=== PATIENT | female | born 1960 | race Caucasian/White ===

== ENCOUNTER 2017-11-27 13:51 | Inpatient (IN) ==
[2017-11-27] MEDS ORDERED: ONDANSETRON 4 MG/2 ML INJECTION IVP ONE (14:27)
[2017-11-27] MEDS ORDERED: NS 1,000 ML IV ONE (14:27)
[2017-11-27] MEDS ORDERED: KETOROLAC 30 MG/ML INJECTION IVP ONE (14:27)
--- NOTE | 2017-11-27 14:53 | Emergency Department Report ---
Nausea/Vomiting/Diarrhea HPI - General Chief complaint: Nausea/Vomiting/Diarrhea Stated complaint: vomitting, stomach pain Time Seen by Provider: 11/27/17 14:21 Source: patient, RN notes reviewed, old records reviewed Mode of arrival: ambulatory Limitations: no limitations - History of Present Illness HPI Narrative: 57yo woman presents to the ER for evaluation of N/V/D. Pt developed N/V/abd pain 4 days ago. Has had N/V/abd pain from 7pm to 5am for the last 3 nights. Pt states that nausea and vomiting are 'intractable', but vomiting is only once every hour or so. Denies sick contacts. Has metastatic BRCA. MD complaint: nausea, vomiting, diarrhea Onset (ago): day(s) (3-4) Description of Vomiting: watery Location of pain: diffuse Severity scale (1-10): 5 Quality: cramping Consistency: constant, intermittent Exacerbating factors: movement Associated symptoms: denies other symptoms - Related Data Home Medications Medication Instructions Recorded Confirmed Carisoprodol [Soma] 350 mg PO Q8H PRN #0 01/17/16 11/27/17 Inulin/Chromium Picolinate [Fiber 1 tab PO BID #0 01/17/16 11/27/17 Gummies] ALPRAZolam [Xanax] 1 mg PO TID PRN 11/27/17 11/27/17 Calcium Carbonate/Vitamin D3 1 each PO DAILY 11/27/17 11/27/17 [Calcium 500-Vit D3 200 Tablet] Cyanocobalamin (B-12) [Vit. B-12] 500 mcg PO DAILY 11/27/17 11/27/17 Docusate Sodium [Colace] 100 mg PO BID 11/27/17 11/27/17 FLUoxetine [Prozac] 60 mg PO DAILY 11/27/17 11/27/17 FentaNYL PATCH [Duragesic Patch] 1 patch TD Q72H 11/27/17 11/27/17 Multivitamin [One Daily] 1 each PO DAILY 11/27/17 11/27/17 Peg 3350 238 G Bottle [Miralax] 1 dose PO DAILY PRN 11/27/17 11/27/17 Potassium Chloride 20 meq PO DAILY 11/27/17 11/27/17 Rivaroxaban [Xarelto] 20 mg PO DAILY 11/27/17 11/27/17 Previous Rx's Medication Instructions Recorded Oxycodone HCl [Roxicodone] 15 - 30 mg PO Q4H PRN #30 tab 12/02/17 Allergies Allergy/AdvReac Type Severity Reaction Status Date / Time No Known Allergies Allergy Verified 11/27/17 15:12 Review of Systems All systems: reviewed and negative except as stated Gastrointestinal: Reports: as per HPI, abdominal pain, nausea, vomiting. Denies : diarrhea, constipation, hematemesis, melena, hematochezia PFSH Patient Stated Medical History Dental Problems Yes: DENTURES Other HEENT Yes: WEARS GLASSES Obstructive Bowel Yes Clotting Problems Yes Medical History Updates: Anxiety. Constipation. A-fib. Breast CA. Liver mets. Depression. Chronic pain. OA Physical Exam - Limitations Limitations: no limitations - General General appearance: alert, in no apparent distress, cachectic - Normal Exams: Head:: Normocephalic without trauma Eyes:: Pupils are PERRLA w/ EOMI, No scleral icterus, irritation, or foreign bodies noted ENMT:: No facial trauma, nasal exudates, pharyngeal erythema, or exudates are noted Neck:: Full range of motion, without adenopathy Lymphatic:: No lymphadenopathy Musculoskeletal:: No tenderness, or deformity noted, good range of motion Integumentary:: No rashes, hives, or bruising noted Neurological:: Patient is alert, and oriented Psychiatric:: Patient exhibits, appropriate attention - Chest Chest inspection: Present: normal inspection, symmetric chest wall rise. Absent : tenderness, rash - Respiratory Respiratory exam: Present: normal lung sounds bilaterally. Absent: respiratory distress, wheezes, prolonged expiratory phase, crackles - Cardiovascular Cardiovascular exam: Present: regular rate, normal rhythm, normal heart sounds, +S1, +S2. Absent: systolic murmur, diastolic murmur, +S3, +S4 - Abdominal Exam Abdominal exam: Present: soft. Absent: distention, tenderness, guarding, rebound, rigidity Course - Consultations Consultation #1: Dr. Ribeiro: No indications for emergent intervention. Can consult after pt is admitted and treat, if required. Time: 15:59 Consultation #2: Hospitalist: Will admit for observation. Time: 16:41 Vital Signs Temperature 98.9 F 11/27/17 14:05 Pulse Rate 96 11/27/17 14:05 Respiratory Rate 24 11/27/17 14:05 Blood Pressure 112/53 11/27/17 14:05 Pulse Oximetry 92 11/27/17 14:05 Temperature 98.5 F 12/02/17 17:54 Pulse Rate 98 12/02/17 17:54 Respiratory Rate 18 12/02/17 17:54 Blood Pressure 140/67 H 12/02/17 17:54 Pulse Oximetry 92 12/02/17 17:54 Nausea/Vomiting/Diarrhea - MDM Narrative Medical decision making narrative: On further review, pts sx started after learning that her liver met was growing. KUB shows an intraluminal earring and high-grade SBO. Will contact Gen Surg to discuss admission. Will likely need to be admitted to medicine due to comorbidities. - Differential Diagnosis Likely: food poisoning, gastroenteritis, drug-induced nausea and vomiting, dehydration (Anxiety) - Medical Records Attestation: I reviewed the patient's medical records. - Lab Data Attestation: I reviewed the patient's lab results. Result diagrams: 12/02/17 04:11 12/02/17 04:11 Lab Results 11/27/17 11/27/17 Range/Units 14:51 14:51 WBC 7.7 (4.5-11.0) T/MM3 RBC 3.73 L (4.00-5.20) M/MM3 Hgb 11.6 L (12-16) GM/DL Hct 36.1 (36-46) % MCV 96.8 (80-100) UM3 MCH 31.1 (26-34) UUG MCHC 32.1 (31-37) GM/DL RDW Std Deviation 51.4 H (36.9-50.2) FL Plt Count 302 (130-400) T/MM3 MPV 9.5 (9.4-12.4) UM3 Immature Gran % (Auto) 0.3 (0.0-0.5) % Neut % (Auto) 76.8 H (33-66) % Lymph % (Auto) 14.9 L (23-45) % Lynn % (Auto) 7.3 (0-9.0) % Eos % (Auto) 0.4 (0-4) % Baso % (Auto) 0.3 (0-2) % Neut # (Auto) 5.9 (1.8-7.7) T/MM3 Lymph # (Auto) 1.2 (1-4.8) T/MM3 Lynn # (Auto) 0.6 (0-0.8) T/MM3 Eos # (Auto) 0.0 (0-0.5) T/MM3 Baso # (Auto) 0.0 (0-0.2) T/MM3 Abs Immat Gran (auto) 0.02 (0.00-0.03) T/MM3 Turbidity < 20 (0-20) Sodium 141 (134-144) MEQ/L Potassium 3.7 (3.6-5) MEQ/L Chloride 96 L (98-107) MEQ/L Carbon Dioxide 35 H (22-30) MEQ/L Anion Gap 10 (5-15) MEQ/L BUN 23.0 H (7-17) MG/DL Creatinine 0.9 (0.7-1.2) MG/DL GFR Calculation 65 BUN/Creatinine Ratio 26 (6-26) RATIO Glucose 121 H (65-110) MG/DL Calculated Osmolality 276 (261-280) MOSM/KG Calcium 9.7 (8.4-10.2) MG/DL Total Bilirubin 0.40 (0.20-1.30) MG/DL Icterus Index < 2 (0-7) AST 23 (14-36) U/L ALT 34 (9-52) U/L Alkaline Phosphatase 135 H (38-126) U/L Troponin I < 0.012 (0-0.12) ng/ml Total Protein 8.7 H (6.3-8.2) G/DL Albumin 4.4 (3.5-5.0) G/DL Globulin 4.3 H (2.4-3.6) G/DL Albumin/Globulin Ratio 1.0 L (1.1-2.2) RATIO Lipase 46 (23-300) U/L Specimen Hemolysis < 15 (0-25) - Radiology Data Attestation: I reviewed the patient's radiology results. KUB: IMPRESSION: 1. No acute cardiopulmonary abnormality. 2. Evidence of a high-grade small bowel obstruction that may or may not be related to an ingested foreign body in the right lower quadrant which appears to be an earring. Disposition Clinical Impression: SBO (small bowel obstruction) Foreign body in colon Qualifiers: Encounter type: initial encounter Qualified Code(s): T18.4XXA - Foreign body in colon, initial encounter [place] [facility] [facility] [place] Stable Time of Disposition: 16:13 - Seen By: physician
--- OUTSIDE RECORDS SUMMARY | 2017-11-27 15:14 | External Medical Summary | Continuity of Care Document ---
:1960 Author Organization [facility] Support Name Relationship Address Phone PAGE, TERE Calderón MD Unavailable [address] [facility] Unavailable [address] [place] [address] JESSICA VALENTIN Unavailable [place] [address] Insurance Providers Payer Name Policy Number Subscriber Name Relationship [facility] [id number] Martha Gates A 18 Self / Same As Patient Advance Directives Directive Response Recorded Date/Time Advanced Directives Unknown 04/30/16 10:46am Problems Active Problems Medical Problem Onset Date Status Abdominal pain Unknown Acute Altered mental status Unknown Acute Breast cancer Unknown Acute Constipation Unknown Acute SBO (small bowel obstruction) Unknown Acute Small bowel obstruction Unknown Acute Medications Current Home Medications Medication Dose Units Route Directions Days/Qty Instructions Start Date Oxycodone/Acetamino 1-2 Tab ORAL Every 4HRS as 09/27/15 phen 1 Tab needed for Pain Cyanocobalamin 500 Mcg ORAL Daily 09/27/15 (Vitamin B-12) 500 Mcg Carisoprodol (Soma) 350 Mg ORAL Three Times A Day 09/27/15 350 Mg as needed for Pain Fluoxetine Hcl 60 Mg ORAL Daily 09/27/15 (Prozac) 20 Mg Calcium Carbonate 600 Mg ORAL Daily 09/28/15 600 Mg Inulin/Chromium 1 Each ORAL Daily 09/28/15 Picolinate 1 Each Alprazolam 1 Mg 1 Mg ORAL Twice A Day as 12/08/15 needed for Anxiety Ondansetron Hcl 4 4 Mg ORAL Every 6 Hours as 15 12/11/15 Mg needed for Nausea Magnesium Hydroxide 30 Ml ORAL Every 4HRS as 1 12/11/15 400 Mg/5 Ml needed for Constipation Polyethylene Glycol 17 Gm ORAL Daily 30 12/11/15 3350 17 Gm Docusate Sodium 100 100 Mg ORAL Twice A Day 60 12/11/15 Mg Past Home Medications Medication Directions Ordered Status Phenazopyridine Hcl 100 Mg Tablet, 100 Mg Three Times A Day 09/27/15 Discontinued Oral Carisoprodol 250 Mg Tablet, 250 Mg Oral Four Times Daily 09/27/15 Discontinued Alprazolam (Xanax) 0.25 Mg Tablet, 0.25 Mg As Needed 09/27/15 Discontinued Oral Ondansetron Hcl 8 Mg Tablet, 8 Mg Oral Twice A Day 09/27/15 Discontinued Warfarin (Coumadin) 5 Mg Tablet, 5 Mg Oral Daily 09/27/15 Discontinued Levofloxacin 500 Mg Tablet, 500 Mg Oral Daily 12/07/15 Discontinued Social History Query Response Start Date Stop Date Smoking Status Former smoker Hospital Discharge Instructions No hospital discharge instructions. Plan of Care Prescriptions See Medication Section Functional Status No functional status results. Allergies, Adverse Reactions, Alerts Allergen Type Severity Reaction Status Last Updated Quinolones Allergy Unknown Active 09/27/15 Ciprofloxacin Allergy Unknown Active 01/27/15 Immunizations No immunization records. Vital Signs No known vital signs results. Results Laboratory Results Test Name Result Units Flags Reference Collection Result Comments Date/Time Date/Time White Blood Count 5.09 10^3uL 4.0-11.0 03/16/2017 03/16/2017 3:03pm 3:23pm Red Blood Count 3.56 10^6uL L 4.00-5.00 03/16/2017 03/16/2017 3:03pm 3:23pm Hemoglobin 11.2 g/dL L 12.0-15.5 03/16/2017 03/16/2017 3:03pm 3:23pm Hematocrit 34.70 % L 35.00-45.00 03/16/2017 03/16/2017 3:03pm 3:23pm Mean Corpuscular 98 FL 80-100 03/16/2017 03/16/2017 Volume 3:03pm 3:23pm Mean Corpuscular 31.5 PG 26.0-34.0 03/16/2017 03/16/2017 Hemoglobin 3:03pm 3:23pm Mean Corpuscular 32.3 g/dL 31.0-37.0 03/16/2017 03/16/2017 Hemoglobin Concent 3:03pm 3:23pm Red Cell 13.5 % 11.8-15.6 03/16/2017 03/16/2017 Distribution Width 3:03pm 3:23pm Platelet Count 304 10^3uL 150-450 03/16/2017 03/16/2017 3:03pm 3:23pm Mean Platelet 9.0 FL 6.0-9.5 03/16/2017 03/16/2017 Volume 3:03pm 3:23pm Differential Total 100 03/16/2017 03/16/2017 Cells Counted 3:03pm 4:04pm Segmented 48 % L 51-67 03/16/2017 03/16/2017 Neutrophils % 3:03pm 4:04pm Band Neutrophils % 0 % 0-6 03/16/2017 03/16/2017 3:03pm 4:04pm Lymphocytes % 42 % 20-46 03/16/2017 03/16/2017 (Manual) 3:03pm 4:04pm Monocytes % 7 % 3-11 03/16/2017 03/16/2017 (Manual) 3:03pm 4:04pm Eosinophils % 2 % 0-4 03/16/2017 03/16/2017 (Manual) 3:03pm 4:04pm Basophils % 1 % 0-2 03/16/2017 03/16/2017 (Manual) 3:03pm 4:04pm Neutrophils # 2.4 # 03/16/2017 03/16/2017 3:03pm 4:04pm Absolute Band 0.0 # 03/16/2017 03/16/2017 Neutrophils 3:03pm 4:04pm Lymphocytes # 2.1 # 03/16/2017 03/16/2017 3:03pm 4:04pm Monocytes # 0.4 # 03/16/2017 03/16/2017 3:03pm 4:04pm Eosinophils # 0.1 # 03/16/2017 03/16/2017 3:03pm 4:04pm Basophils # 0.1 # 03/16/2017 03/16/2017 (Manual) 3:03pm 4:04pm Blood Morphology NORMAL NORMAL 03/16/2017 03/16/2017 Comment 3:03pm 4:04pm Volume Urine 12 mL 04/08/2017 04/08/2017 Centrifuged 4:20pm 4:57pm Urine Collection RANDOM 04/08/2017 04/08/2017 Type VOIDED 4:20pm 4:57pm Urine Color Dark 04/08/2017 04/08/2017 Yellow 4:20pm 4:56pm Urine Clarity Slightly 04/08/2017 04/08/2017 Cloudy 4:20pm 4:56pm Urine pH 6.0 5.0 - 8.0 04/08/2017 04/08/2017 4:20pm 4:56pm Urine Specific >=1.030 1.005-1.030 04/08/2017 04/08/2017 [place] 4:20pm 4:56pm Urine Protein TRACE H 04/08/2017 04/08/2017 4:20pm 4:56pm Urine Glucose (UA) Negative Negative 04/08/2017 04/08/2017 4:20pm 4:56pm Urine Blood 2+ H Negative 04/08/2017 04/08/2017 4:20pm 4:56pm Urine Ketones Trace H Negative 04/08/2017 04/08/2017 4:20pm 4:56pm Urine Nitrite Negative Negative 04/08/2017 04/08/2017 4:20pm 4:56pm Urine Bilirubin Negative Negative 04/08/2017 04/08/2017 4:20pm 4:56pm Urine Urobilinogen 0.2 mg/dL 0.2-1.0 04/08/2017 04/08/2017 4:20pm 4:56pm Urine Leukocyte Negative Negative 04/08/2017 04/08/2017 Esterase 4:20pm 4:56pm Urine Microscopic 2-5 /HPF 04/08/2017 04/08/2017 RBC 4:20pm 4:57pm Urine Microscopic 10-20 /HPF H 04/08/2017 04/08/2017 WBC 4:20pm 4:57pm Urine Bacteria None Seen /HPF Negative 04/08/2017 04/08/2017 4:20pm 4:57pm Urine Squamous 2-5 /LPF 04/08/2017 04/08/2017 Epithelial Cells 4:20pm 4:57pm Urine Mucus 2+ H 04/08/2017 04/08/2017 4:20pm 4:57pm Sodium Level 141 mmol/L 135-150 03/16/2017 03/16/2017 3:03pm 3:26pm Potassium Level 4.2 mmol/L 3.5-5.1 03/16/2017 03/16/2017 3:03pm 3:26pm Chloride Level 104 mmol/L 98-108 03/16/2017 03/16/2017 3:03pm 3:26pm Carbon Dioxide 30 mmol/L H 22-29 03/16/2017 03/16/2017 Level 3:03pm 3:26pm Anion Gap 12.1 MEQ/L 3-15 03/16/2017 03/16/2017 3:03pm 3:26pm Blood Urea Nitrogen 19 mg/dL H 7-18 03/16/2017 03/16/2017 3:03pm 3:26pm Creatinine 0.65 mg/dL 0.6-1.2 03/16/2017 03/16/2017 3:03pm 3:26pm BUN/Creatinine 29 H 10-20 03/16/2017 03/16/2017 Ratio 3:03pm 3:26pm Estimat Glomerular 114.1 03/16/2017 03/16/2017 Filtration Rate 3:03pm 3:26pm Estimated GFR 94.3 03/16/2017 03/16/2017 (Non- 3:03pm 3:26pm [place] Glucose Level 88 mg/dL 70-110 03/16/2017 03/16/2017 3:03pm 3:26pm Calculated 275 mosm/L L 280-300 03/16/2017 03/16/2017 Osmolality 3:03pm 3:26pm Calcium Level 9.0 mg/dL 8.8-10.8 03/16/2017 03/16/2017 3:03pm 3:26pm Calcium/Ionized 3.8 mg/dL 3.8-4.6 03/16/2017 03/16/2017 Calcium Ratio 3:03pm 3:26pm Phosphorus Level 4.3 mg/dL 2.4-4.9 03/16/2017 03/16/2017 3:03pm 3:26pm Magnesium Level 1.8 mg/dL 1.6-2.3 03/16/2017 03/16/2017 3:03pm 3:26pm Total Bilirubin 0.3 mg/dL 0.1-1.0 03/16/2017 03/16/2017 3:03pm 3:26pm Alkaline 127 U/L H 38-126 03/16/2017 03/16/2017 Phosphatase 3:03pm 3:26pm Aspartate Amino 31 U/L 15-37 03/16/2017 03/16/2017 Transf (AST/SGOT) 3:03pm 3:26pm Alanine 51 U/L 30-65 03/16/2017 03/16/2017 Aminotransferase 3:03pm 3:26pm (ALT/SGPT) Lactate 469 U/L 313-618 03/16/2017 03/16/2017 Dehydrogenase 3:03pm 3:26pm Total Protein 7.6 g/dL 6.4-8.5 03/16/2017 03/16/2017 3:03pm 3:26pm Albumin 3.9 g/dL 3.4-5.0 03/16/2017 03/16/2017 3:03pm 3:26pm Albumin/Globulin 1.054 L 1.1-1.8 03/16/2017 03/16/2017 Ratio 3:03pm 3:26pm Procedures No known history of procedures. Encounters Encounter Location Arrival/Admit Date Discharge/Depart Date Attending Provider Discharged Maria De Jesus 03/16/17 3:00pm 04/22/17 7:16pm [facility]
--- OUTSIDE RECORDS SUMMARY | 2017-11-27 15:14 | External Medical Summary ---
:1960 Author Organization [employer] Care Team Providers Name Role Phone Darleen Hooper Provider Role Unavailable Allergies, Adverse Reactions, Alerts Substance Reaction Event Type sulfa drugs unknown Non Drug Allergy Problems Problem Type Condition Code Onset Dates Condition Status Assessment Acute cystitis with hematuria N30.01 Active Assessment Dysuria R30.0 Active Medications Medication Code Code Instructions Start End Date Status Dosage System Date Levofloxacin NDC 19205-53 750 MG Orally Aug 28, Sep 02, 1 tablet 93-53 Once a day 2015 2015 Oxycodone-Acetami NDC 40116-88 10-325 MG Orally 1 tablet nophen 06-01 every 6 hrs as needed Potassium NDC 83887-95 not Gluconate 761 defined Carisoprodol NDC 40430-89 350 MG Orally 1 tablet 76-01 Four times a day as needed Multivitamins NDC 19876-19 Orally not 041 defined Docusate Sodium NDC 61813-03 100 MG Orally 1 capsule 63-00 BID as needed MiraLax NDC 27738-63 Orally not 34-02 defined Fluoxetine NDC 0 60 mg daily not defined Procedures Procedure Coding System Code Date URINE CULTURE CPT-4 31307 Aug 28, 2016 OFFICE VISIT, EST-LOW COMPLEXITY (15 MIN.) CPT-4 42735 Aug 28, 2016 Vital Signs Date/Time: Aug 28, 2016 Temperature 97.9 F Height 68.5 in Weight 141.8 lbs Blood Pressure Diastolic 64 mm Hg Blood Pressure Systolic 102 mm Hg Cardiac Monitoring Heart Rate 90 /min BMI 21.24 Index Oximetry 95 % Respiratory Rate 16 /min Results No Known Results Summary Purpose eClinicalWorks Submission
--- OUTSIDE RECORDS SUMMARY | 2017-11-27 15:14 | External Medical Summary | Continuity of Care Document ---
:1960 Author Organization [facility] Support Name Relationship Address Phone Guerita Fairbanks Unavailable [address] Unavailable [address] [place] [address] LENNY GONZALEZ MD Unavailable [address] [address] JESSICA VALENTIN [place] [address] Insurance Providers Payer Name Policy Number Subscriber Name Relationship Myriam Chiara Hamiltonr [id number] Martha Mg 18 Self / Same As Patient Advance Directives Directive Response Recorded Date/Time Advanced Directives No 12/06/15 9:45pm Chief Complaint and Reason for Visit Chief Complaint Pain Reason for Visit [id number] Problems Active Problems Medical Problem Onset Date Status Breast cancer Unknown Acute SBO (small bowel obstruction) Unknown Acute Medications Current Home Medications Medication Dose Units Route Directions Days/Qty Instructions Start Date Oxycodone 1 Tab ORAL As Needed as 09/27/15 Hcl/Acetaminophen 1 needed for Pain Tab Cyanocobalamin 500 Mcg ORAL Daily 09/27/15 (Vitamin B-12) 500 Mcg Alprazolam (Xanax) 0.25 Mg ORAL As Needed 09/27/15 0.25 Mg Carisoprodol (Soma) 350 Mg ORAL Three Times A 09/27/15 350 Mg Day Fluoxetine Hcl 20 Mg ORAL Daily 09/27/15 (Prozac) 20 Mg Warfarin (Coumadin) 5 Mg ORAL Daily 09/27/15 5 Mg Calcium Carbonate 600 Mg ORAL Daily 09/28/15 600 Mg Inulin/Chromium 1 Each ORAL Daily 09/28/15 Picolinate 1 Each Past Home Medications Medication Directions Ordered Status Phenazopyridine Hcl 100 Mg Tablet, 100 Mg Three Times A Day 09/27/15 Discontinued Oral Carisoprodol 250 Mg Tablet, 250 Mg Oral Four Times Daily 09/27/15 Discontinued Ondansetron Hcl 8 Mg Tablet, 8 Mg Oral Twice A Day 09/27/15 Discontinued Social History Query Response Start Date Stop Date Smoking Status Unknown, if ever smoked Hospital Discharge Instructions No hospital discharge instructions. Plan of Care Discharge Date 12/07/15 1:53am Disposition 01 HOME OR SELF-CARE Condition at Discharge Stable Instructions/Education Provided Bowel Obstruction (GEN) Acute Abdominal Pain (ED) Prescriptions See Medication Section Additional Instructions/Education Clear liquid diet only for the next 24 hours. See your doctor/go to walk-in clinic, or return to ED for re-evaluation tomorrow. ED ORION if you change your mind about being admitted. Some of your test results may not be complete prior to your leaving the Emergency Department. The Emergency Department is not authorized to give test results over the phone. Please contact the doctor's office listed in this packet of information for your final results. Follow up with your primary care physician or return to the Emergency Department for worsening or worrisome symptoms. * Emergency Department phone number: [phone], x [phone]* MEDICAL RECORD If you need copies of your X-rays, call [phone]. If you need copies of your medical record, including lab results, a signed authorization for release of records will be required. A telephone call for release of Health Information is not allowed. BILLING Billing can sometimes be confusing and frustrating. To help avoid confusion in the future, please take a moment to acquaint yourself with the billing parties for services. SERVICE BILLING [facility] Physician Services [facility] X-rays [place] [facility] Patients will receive bills for services from the appropriate provider. If you have any questions about your [facility] bill, our staff will be happy to assist you. Please call [phone], and ask for the billing department. THANK YOU for choosing [facility] as your emergency care provider! Care Plan and Goals ~~Discharge Care Plan~~ Problem: Abdominal pain/ BOWEL OBSTRUCTION Goal: Decreased level of pain. Return to usual activities. Instructions: Take medication(s) as directed; follow up with primary care physician as directed; follow patient home care instructions. Functional Status No functional status results. Allergies, Adverse Reactions, Alerts Allergen Type Severity Reaction Status Last Updated Quinolones Allergy Unknown Active 09/27/15 Ciprofloxacin Allergy Unknown Active 01/27/15 Immunizations No immunization records. Vital Signs Acute Vital Signs Vital Response Date/Time Temperature (Fahrenheit) 98.7 12/07/2015 1:51am Pulse 84 bpm 12/07/2015 1:51am Respirations 18 12/07/2015 1:51am Height 5 ft 6 in Weight 139 lb Body Mass Index 22.0 kg/m^2 Results Pending Laboratory Results Test Name Collection Date/Time Procedures Procedure Status Date Provider(s) CHEST X-RAY 2VW FRONTAL&LATL Completed 11/21/15 TTE W/DOPPLER COMPLETE Completed 11/21/15 Encounters Encounter Location Arrival/Admit Date Discharge/Depart Date Attending Provider Departed [place] 12/06/15 9:18pm 12/07/15 1:53am [facility] LENNY Aggarwal MD Registered [place] 11/21/15 9:19am [facility] Recent Diagnosis
--- OUTSIDE RECORDS SUMMARY | 2017-11-27 15:14 | External Medical Summary | Referral Summary ---
:1960 Author Organization [facility] Address [address] [place] [address] [place] [address] Care Team Providers Name Role Phone Darleen Hooper Primary Care Physician Encounter VC Date(s): 02/06/16 - 02/06/16 [facility], [address] [place] [id number] Discharge Diagnosis: Post-operative state Discharge Disposition: 01-Home or Self Care Attending Physician: Angélica Buck APRN Admitting Physician: Angélica Buck APRN Referring Physician: Darleen Hooper LANCE CREWMEMBER/MLRS SERGEANT Vital Signs Most recent to oldest [Reference Range]: 1 Temperature Tympanic [36.6-38.1 degC] 36.9 degC (02/06/16 10:33 AM) Problem List No data available for this section Allergies, Adverse Reactions, Alerts No Known Medication Allergies Medications Citracal Calcium Gummies tabs, Chewed, BID, 0 Refill(s) Start Date: 08/17/14 Status: OrderedColace 100 mg oral capsule 100 mg 1 caps, Oral, BID, as needed for constipation, # 20 caps, 0 Refill(s) Start Date: 02/06/16 Status: OrderedHYDROcodone-ibuprofen 7.5 mg-200 mg oral tablet 1 tabs, Oral, q4hr, as needed for pain, 0 Refill(s) Start Date: 08/17/14 Status: OrderedMiraLax oral powder for reconstitution 17 g, Oral, Daily, dissolve in water before taking, # 255 g, 0 Refill(s) Start Date: 02/06/16 Status: Orderedmultivitamin Daily, 0 Refill(s) Start Date: 08/17/14 Status: OrderedoxyCODONE-acetaminophen 10 mg-325 mg oral tablet 1 tabs, Oral, q4hr, as needed for pain, # 10 tabs, 0 Refill(s) Start Date: 02/06/16 Status: Orderedpotassium citrate Oral, 0 Refill(s) Start Date: 08/21/14 Status: OrderedPROzac Oral, Daily, 0 Refill(s) Start Date: 08/17/14 Status: OrderedVitamin B12 0 Refill(s) Start Date: 08/17/14 Status: OrderedXanax Oral, TID, 0 Refill(s) Start Date: 08/17/14 Status: Ordered Results No data available for this section Immunizations No data available for this section Procedures Procedure Date Related Diagnosis Body Site Exploratory laparotomy1 01/18/16 Mastectomy of right breast 07/21/14 BLADDER TUCK TICO BSO - Total abdominal hysterectomy and bilateral salpingo-oophorectomy Tonsil and adenoid disease, chronic 1Lysis of adhesions Social History Social History Type Response Smoking Status Former smoker Assessment and Plan Extracted from: Title: Office Visit Note Author: Angélica Buck 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 This may also help with allstool function to some extent. Continue with antibiotic for the urinary tract infection. Continue to use common sense. If an activity is causing pain, that is a sign that you need to "back off" and wait a little longer before lifting something that heavy or doing that activity. Do not hes itate to contact us with any surgical concerns. Continue with your general medical care through your primary care physician. Ordered: Postoperative Est [id number]
--- OUTSIDE RECORDS SUMMARY | 2017-11-27 15:14 | External Medical Summary | Continuity of Care Document ---
:[address] [facility] Care Team Providers Name Role Phone Guerita Fairbanks Unavailable Unavailable Insurance Providers Payer Name Policy Number Subscriber Name Relationship [facility] [employer] [id number] Martha Gates 19 Self / Same As Patient Advance Directives Directive Response Recorded Date/Time Advanced Directives No 09/28/15 8:45am Problems Active Problems Medical Problem Onset Date Status Breast cancer Unknown Acute Medications Current Home Medications Medication [...] Twice A Day 09/27/15 Discontinued Social History Social History Problem Response Recorded Date/Time Onset Date Status Occupation or Former Occupation Disabled 09/28/2015 9:07am Query Response Start Date Stop Date Smoking Status Never smoker Hospital Discharge Instructions No hospital discharge instructions. Plan of Care Discharge Date 09/28/15 2:18pm Prescriptions See Medication Section Functional Status No functional status results. Allergies, Adverse Reactions, Alerts Allergen Type Severity Reaction Status Last Updated Quinolones Allergy Unknown Active 09/27/15 Ciprofloxacin Allergy Unknown Active 01/27/15 Immunizations No immunization records. Vital Signs Acute Vital Signs Vital Response Date/Time Temperature (Fahrenheit) 97.7 09/28/2015 1:48pm Pulse 90 bpm 09/28/2015 1:48pm Respirations 20 09/28/2015 1:48pm Height 5 ft 6 in Weight 140 lb Body Mass Index 22.6 kg/m^2 Results Laboratory Results Test Name Result Units Flags Reference Collection Result Comments Date/Time Date/Time Prothrombin Time 13.0 SEC 11.9-14.2 09/28/2015 09/28/2015 9:02am 9:18am Prothromb Time 1.0 0.8-1.4 09/28/2015 09/28/2015 International 9:02am 9:18am Ratio Procedures No known history of procedures. Encounters Encounter Location Arrival/Admit Date Discharge/Depart Date Attending Provider Departed Maria De Jesus 09/28/15 8:28am 09/28/15 2:18pm [facility] JASVIR Lu MD Care Recent Diagnosis Breast cancer
--- OUTSIDE RECORDS SUMMARY | 2017-11-27 15:14 | External Medical Summary ---
:1960 Author Organization [facility]. Summary purpose CCDA Sent to [facility] Chief Complaint and Reason for Visit Admit Diagnosis 1 PRECORDIAL PAIN Problem list No authorized problems tracked for continuity of care are available for this visit. Encounters No authorized problems tracked for encounter diagnoses are available for this visit. Medications Home Medications Medication Directions Started Status Source [place] 5 mg-325 mg tablet 1-2 tablet oral As Needed Discont Every 6 Hours Prozac 20 mg capsule 3 tablet oral -Daily Current cyclobenzaprine 10 mg tablet 1 tablet oral As Needed Current Every 8 Hours Calcium 500 + D 500 mg(1,250 2 unknown oral 2 times per Current mg)-400 unit chewable tablet day ALPRAZolam 2 mg tablet 1 tablet oral As Needed Current Every 8 Hours vitamin [id number] acid oral 1 tablet oral -Daily Current 2000 mg daily potassium chloride ER 10 mEq 1 tablet oral -Daily Current tablet,extended release Allergies, adverse reactions, alerts Allergen Category Ingredient Status Reaction Severity Onset No Known Drug No Known Drug No Known Drug Active Allergy Allergy Allergy No Known Food No Known Food No Known Food Active Allergy Allergy Allergy Immunizations No immunizations recorded for this patient visit Relevant diagnostic tests and/or laboratory data RESULTS CBC [id number]:30:00 Result Normal Range Units WBC L 4.69 4.8-10.8 x103/mm3 Neutrophil % H 78.7 50-70 % Lymph % L 16.8 20-50 % Leon % 4.1 1.0-9.0 % Eosinophil % 0.2 0-4 % Basophil % 0.2 0-2 % Neutrophil # 3.69 3.0-7.0 x103/mm3 Lymph # L 0.79 1.0-4.0 x103/mm3 Leon # 0.19 0.0-0.8 x103/mm3 Eosinophil # 0.01 0-0.5 x103/mm3 Basophil # 0.01 0-0.2 x103/mm3 RBC L 3.69 4.20-5.40 x103/mm3 HGB 12.1 12.0-16.0 g/dl HCT L 36.5 37.0-47.0 % MCV 98.9 81-99 FL MCH H 32.8 27.0-31.0 pg MCHC 33.2 32.0-36.0 g/dl RDW 13.5 12-15 % Platelet 255 150-400 x103/mm3 MPV 9.0 6.0-10.0 FL Chemistry Group [id number]:00 Result Normal Range Units Sodium 138 134-145 mmol/L Potassium L 3.3 3.6-5.0 mmol/L Chloride 101 98-107 mmol/L CO2 26 22-30 mmol/L Glucose H 135 75-110 mg/dl BUN 13 9-20 mg/dl Creatinine L .6 0.8-1.7 mg/dl Total Protein 7.2 6.3-8.2 g/dl Albumin 4.0 3.5-5.0 g/dl Calcium 9.1 8.4-10.2 mg/dl Alk Phos 89 38-126 U/L AST 28 14-36 U/L ALT 21 11-66 U/L T Bili .2 0.2-1.3 mg/dl A/G Ratio 1.2 Ratio Coagulation Group [id number]:00 Result Normal Range Units Protime H 15.6 9.9-11.9 Sec INR 1.4 APTT 31.4 21.9-31.9 Sec Special Chemistry Group [id number]:00 Result Normal Range Units Troponin I < 0.06 ng/ml NEGATIVE - 0.06-0.30 ng/ml INCONCLUSIVE - 0.31-0.64 ng/ml; Suggest Repeating in 2-4 hours POSITIVE - >0.64 ng/ml; Probable AMI History of procedures Procedure Code Code Type Description Date Performed Performing Physician 16789 CPT-4 EMERGENCY DEPT VISIT 02-12-2015 [facility] [place] 31561 CPT-4 COMPLETE CBC AUTOMATED 02-12-2015 [place] [place] 05522 CPT-4 PROTHROMBIN TIME 02-12-2015 [place] [place] 85181 CPT-4 THROMBOPLASTIN TIME 02-12-2015 [facility] PARTIAL SABIHA 62758 CPT-4 COMPREHEN METABOLIC 02-12-2015 [facility] [address] CPT-4 ASSAY OF TROPONIN QUANT 02-12-2015 [facility] [address]695 CPT-4 CHEST X-RAY 2VW 02-12-2015 G[facility] FRONTAL&LATL [facility] [address] CPT-4 ELECTROCARDIOGRAM 02-12-2015 [facility]TO TRACING [facility] [address] CPT-4 ROUTINE VENIPUNCTURE 02-12-2015 [facility] Functional status Cognitive Status Finding Observation Time Level of Consciousne Alert [id number] Oriented to Person Yes [id number]:[address] Yes [id number]:50 Oriented to Time Yes 29-50-437545:50 Vital signs Type Value Date Respirations 20 49-82-310494:15 Pulse 84 14-35-735438:15 O2 Saturation 96% 27-77-730087:15 Systolic Blood Press 133mm/HG 59-03-555015:15 Diastolic Blood Pres 42mm/HG 38-21-914827:15 Height 70in 78-13-608105:00 Weight 180LB 56-38-751475:00 Social history Type Value Smoking Status NEVER SMOKER Treatment Plan No treatment plan text is available for this visit. Hospital discharge instructions No discharge instruction text is available for this visit.
--- OUTSIDE RECORDS SUMMARY | 2017-11-27 15:14 | External Medical Summary | Summary of Care ---
:1960 Author Name Carla Owen Address [address] [place] [address] Care Team Providers Name Role Phone Carla Owen Unavailable Unavailable Darleen Hooper Primary Care Provider Unavailable Unavailable Unavailable Unavailable Functional Status Functional Status Health Issues Name Dates Details Functional status health issues are not documented Status: Cognitive Status Health Issues Name Dates Details Cognitive status health issues are not documented Status: Problems Name Dates Details Injury of leg, right (959.7, S89.91XA) Status: Active Skin infection (686.9, L08.9) Status: Active Medications Name Dates Details FLUoxetine HCl - 20 MG Oral Capsule TAKE 3 CAPSULES AT BEDTIME. Refills: 0 Started 17-Apr-2016 ActiveALPRAZolam 1 MG Oral Tablet TAKE 1 TABLET Daily PRN Refills: 0 Started 17-Apr-2016 ActivePercocet 10-325 MG Oral Tablet TAKE 2 TABLET Every 4 hours Refills: 0 Started 17-Apr-2016 ActiveLasix 20 MG Oral Tablet TAKE 1 TABLET DAILY DIRECTED. Refills: 0 Started 17-Apr-2016 ActiveCarisoprodol 350 MG Oral Tablet TAKE 1 TABLET Every 8 hours Refills: 0 Started 17-Apr-2016 ActivePerjeta 420 MG/14ML Intravenous Solution Every Thursday Refills: 0 Started 17-Apr-2016 ActiveHerceptin 440 MG Intravenous Solution Reconstituted Every Thursday Refills: 0 Started 17-Apr-2016 ActiveCephalexin 500 MG Oral Tablet TAKE 1 TABLET 3 TIMES DAILY. Quantity: 30 Refills: 0 Carla Owen Started 17-Apr-2016 Active Allergies and Adverse Reactions Name Dates Details No Known Drug Allergies Status: Active Procedures Procedure Dates Details Procedures not documented Immunization Name Dates Details Immunizations not documented Social History Name Dates Details Smoking StatusFormer smoker Vital Signs Date Test Result Details 17-Apr-2016 16:34 BP Systolic 140 mm[Hg] Status: BP Diastolic 88 mm[Hg] Status: Temperature 98.6 f Status: Heart Rate 90 /min Status: Height 70 in Status: Weight 135 lb Status: O2 SAT 96 % Status: Body Mass Index Calculated 19.37 kg/m2 Status: Body Surface Area Calculated 1.77 m2 Status: Results Date Description Value Details 18-Apr-2016 08:11 XRay TIBIA & FIBULA-Right Comments: Exam Date: 04/17 17:25Dictation Date: 04/18/2016 08:11 X TIBIA & FIBULA RT (Better) Plan of Care Planned Observations Name Dates Details Planned Goals not documented Goal Instructions Instructions not documented Encounters Appointment; Carla Owen On 17-Apr-2016 Encounter Diagnosis: Problem not documented 16:25
--- OUTSIDE RECORDS SUMMARY | 2017-11-27 15:14 | External Medical Summary | Continuity of Care Document ---
:1960 Author Organization [facility] Care Team Providers Name Role Phone TERE VANEGAS MD Unavailable Unavailable Insurance Providers Payer Name Policy Number Subscriber Name Relationship [facility] [id number] Martha Mg 19 Self / Same As [...] 100 Mg ORAL Twice A Day 60 01/19/16 Mg Past Home Medications Medication Directions Ordered [...] Result Comments Date/Time Date/Time White Blood Count 5.06 10^3uL 4.0-11.0 07/07/2016 07/07/2016 11:16am 11:25am Red Blood Count 3.59 10^6uL L 4.00-5.00 07/07/2016 07/07/2016 11:16am 11:25am Hemoglobin 11.4 g/dL L 12.0-15.5 07/07/2016 07/07/2016 11:16am 11:25am Hematocrit 34.30 % L 35.00-45.0 07/07/2016 07/07/2016 0 11:16am 11:25am Mean Corpuscular 96 FL 80-100 07/07/2016 07/07/2016 Volume 11:16am 11:25am Mean Corpuscular 31.8 PG 26.0-34.0 07/07/2016 07/07/2016 Hemoglobin 11:16am 11:25am Mean Corpuscular 33.2 g/dL 31.0-37.0 07/07/2016 07/07/2016 Hemoglobin Concent 11:16am 11:25am Red Cell 13.3 % 11.8-15.6 07/07/2016 07/07/2016 Distribution Width 11:16am 11:25am Platelet Count 213 10^3uL 150-450 07/07/2016 07/07/2016 11:16am 11:25am Mean Platelet 8.9 FL 6.0-9.5 07/07/2016 07/07/2016 Volume 11:16am 11:25am Differential Total 100 07/07/2016 07/07/2016 Cells Counted 11:16am 11:27am Segmented 70 % H 51-67 07/07/2016 07/07/2016 Neutrophils % 11:16am 11:27am Band Neutrophils % 0 % 0-6 07/07/2016 07/07/2016 11:16am 11:27am Lymphocytes % 23 % 20-46 07/07/2016 07/07/2016 (Manual) 11:16am 11:27am Monocytes % 5 % 3-11 07/07/2016 07/07/2016 (Manual) 11:16am 11:27am Eosinophils % 2 % 0-4 07/07/2016 07/07/2016 (Manual) 11:16am 11:27am Basophils % 0 % 0-2 07/07/2016 07/07/2016 (Manual) 11:16am 11:27am Metamyelocytes % 0 % 0-1 07/07/2016 07/07/2016 11:16am 11:27am Neutrophils # 3.5 # 07/07/2016 07/07/2016 11:16am 11:27am Absolute Band 0.0 # 07/07/2016 07/07/2016 Neutrophils 11:16am 11:27am Lymphocytes # 1.2 # 07/07/2016 07/07/2016 11:16am 11:27am Monocytes # 0.3 # 07/07/2016 07/07/2016 11:16am 11:27am Eosinophils # 0.1 # 07/07/2016 07/07/2016 11:16am 11:27am Basophils # 0.0 # 07/07/2016 07/07/2016 (Manual) 11:16am 11:27am Blood Morphology NORMAL NORMAL 07/07/2016 07/07/2016 Comment 11:16am 11:27am Volume Urine 10 mL 05/27/2016 05/27/2016 Centrifuged 2:50pm 3:42pm Urine Collection CLEAN 05/27/2016 05/27/2016 Type CATCH 2:50pm 3:42pm Urine Color Dark 05/27/2016 05/27/2016 Yellow 2:50pm 3:23pm Urine Clarity Slightly 05/27/2016 05/27/2016 Cloudy 2:50pm 3:23pm Urine pH 6.5 5.0 - 8.0 05/27/2016 05/27/2016 2:50pm 3:23pm Urine Specific 1.025 1.005-1.03 05/27/2016 05/27/2016 Adger 0 2:50pm 3:23pm Urine Protein 1+ H Negative 05/27/2016 05/27/2016 2:50pm 3:23pm Urine Glucose (UA) Negative Negative 05/27/2016 05/27/2016 2:50pm 3:23pm Urine RBC (Auto) Trace-int H Negative 05/27/2016 05/27/2016 act 2:50pm 3:23pm Urine Ketones 1+ H Negative 05/27/2016 05/27/2016 2:50pm 3:23pm Urine Nitrite Negative Negative 05/27/2016 05/27/2016 2:50pm 3:23pm Urine Bilirubin 1+ H Negative 05/27/2016 05/27/2016 Indican, L[place]ine metabolite and atypical colors may 2:50pm 3:23pm interfere with the interpretation of the Bilirubin reaction. Further testing is required for confirmation. Urine Urobilinogen 0.2 mg/dL 0.2-1.0 05/27/2016 05/27/2016 2:50pm 3:23pm Urine Leukocyte 1+ H Negative 05/27/2016 05/27/2016 Esterase 2:50pm 3:23pm Urine RBC 2-5 /HPF 05/27/2016 05/27/2016 2:50pm 3:42pm Urine WBC 10-20 /HPF H 05/27/2016 05/27/2016 2:50pm 3:42pm Urine Bacteria 1+ /HPF 05/27/2016 05/27/2016 2:50pm 3:42pm Urine Squamous 50-100 /LPF 05/27/2016 05/27/2016 Epithelial Cells 2:50pm 3:42pm Urine Mucus 2+ H 05/27/2016 05/27/2016 2:50pm 3:42pm Urine Hyaline 2+ /LPF 05/27/2016 05/27/2016 Casts 2:50pm 3:42pm Sodium Level 145 mmol/L 135-150 07/07/2016 07/07/2016 11:16am 11:53am Potassium Level 4.4 mmol/L 3.5-5.1 07/07/2016 07/07/2016 11:16am 11:53am Chloride Level 107 mmol/L 98-108 07/07/2016 07/07/2016 11:16am 11:53am Carbon Dioxide 31 mmol/L H 22-29 07/07/2016 07/07/2016 Level 11:16am 11:53am Anion Gap 11.3 MEQ/L 3-15 07/07/2016 07/07/2016 11:16am 11:53am Blood Urea 15 mg/dL 7-18 07/07/2016 07/07/2016 Nitrogen 11:16am 11:53am Creatinine 0.63 mg/dL 0.6-1.2 07/07/2016 07/07/2016 11:16am 11:53am BUN/Creatinine 24 H 10-20 07/07/2016 07/07/2016 Ratio 11:16am 11:53am Estimat Glomerular 118.7 07/07/2016 07/07/2016 Filtration Rate 11:16am 11:53am Estimated GFR 98.1 07/07/2016 07/07/2016 (Non- 11:16am 11:53am Bahraini Glucose Level 90 mg/dL 70-110 07/07/2016 07/07/2016 11:16am 11:53am Calculated 281 mosm/L 280-300 07/07/2016 07/07/2016 Osmolality 11:16am 11:53am Calcium Level 9.4 mg/dL 8.8-10.8 07/07/2016 07/07/2016 11:16am 11:53am Calcium/Ionized 4.3 mg/dL 3.8-4.6 07/07/2016 07/07/2016 Calcium Ratio 11:16am 11:53am Phosphorus Level 2.9 mg/dL # 2.4-4.9 07/07/2016 07/07/2016 11:16am 11:53am Magnesium Level 2.0 mg/dL 1.6-2.3 07/07/2016 07/07/2016 11:16am 11:53am Total Bilirubin 0.3 mg/dL 0.1-1.0 07/07/2016 07/07/2016 11:16am 11:53am Alkaline 92 U/L 38-126 07/07/2016 07/07/2016 Phosphatase 11:16am 11:53am Aspartate Amino 30 U/L 15-37 07/07/2016 07/07/2016 Transf (AST/SGOT) 11:16am 11:53am Alanine 34 U/L 30-65 07/07/2016 07/07/2016 Aminotransferase 11:16am 11:53am (ALT/SGPT) Lactate 453 U/L 313-618 07/07/2016 07/07/2016 Dehydrogenase 11:16am 11:53am Total Protein 6.6 g/dL 6.4-8.5 07/07/2016 07/07/2016 11:16am 11:53am Albumin 3.7 g/dL 3.4-5.0 07/07/2016 07/07/2016 11:16am 11:53am Albumin/Globulin 1.275 1.1-1.8 07/07/2016 07/07/2016 Ratio 11:16am 11:53am Procedures No known history of procedures. Encounters Encounter Location Arrival/Admit Date Discharge/Depart Date Attending Provider Discharged Maria De Jesus 05/27/16 3:10pm 08/25/16 11:59pm TERE VANEGAS [facility]
--- OUTSIDE RECORDS SUMMARY | 2017-11-27 15:15 | External Medical Summary | Continuity of Care Document ---
:1960 Author Organization [facility] Care Team Providers Name Role Phone TERE RICKS MD Unavailable Unavailable Insurance Providers Payer Name Policy Number Subscriber Name Relationship [facility] [id number] Martha Mg 19 Self / Same As Patient Advance Directives Directive Response Recorded Date/Time Advanced Directives Unknown 04/30/16 10:46am Chief Complaint and Reason for Visit Chief Complaint Altered Neurologic Status Reason for Visit Altered mental status Problems Active Problems Medical Problem Onset Date Status Abdominal pain Unknown Acute Altered mental status Unknown Acute Breast cancer Unknown Acute Constipation Unknown Acute SBO (small bowel obstruction) Unknown Acute Small bowel obstruction Unknown Acute Medications Current Home Medications Medication Dose Units Route Directions Days/Qty Instructions Start Date Oxycodone 1-2 Tab ORAL Every 4HRS as 09/27/15 Hcl/Acetaminophen 1 needed for Pain [...] Hydroxide 30 Ml ORAL Every 4HRS as 12/11/15 400 Mg/5 Ml needed for Constipation [...] discharge instructions. Plan of Care Discharge Date 04/30/16 1:45pm Disposition 01 HOME OR SELF-CARE Condition at Discharge Stable Instructions/Education Provided Syncope (ED) Prescriptions See Medication Section Referrals TERE RICKS MD - Additional Instructions/Education Make sure you do not take any of your sedating medications (pain, anxiety) if you have to drive. Your urine drug test showed oxycodone, benzodiazepines (anxiety medication), amphetamine and methamphetamine, so be very careful taking medications as they may cause episodes like you had today where you had a memory lapse. You were very sleepy in the ER today, which would also suggest medication effects. Methamphetamine confirmatory tests have been ordered but will take a few days. Keep your follow up appointment with Dr. Ricks. Return to the ER as needed. Some of your test results may not [...] worrisome symptoms. * Emergency Department phone number: [phone], x [phone]* MEDICAL RECORD If you need copies of your X-rays, call [phone]. If you need copies of [...] the billing parties for services. SERVICE BILLING LIBERTARIAN Emergency Room Services [facility] Physician Services [facility] X-rays [facility] Patients will receive bills for services from the appropriate provider. If you have any questions about your [facility] bill, our staff will be happy to assist you. Please call [phone], and ask for the billing department. THANK YOU for choosing [facility] as your emergency care provider! Care Plan and Goals ~~Discharge Care Plan~~ Problem: Weakness, not feeling well, discomfort. Goal: Decreased weakness, discomfort, and patient feels better. Instructions: Drink plenty of fluids at least 6-8 glasses of water or other non carbonated drink. Get plenty of rest. Eat a balanced and healthy diet. Take medication(s) as directed. Follow up with primary care physician as directed. Functional Status No functional status results. Allergies, Adverse Reactions, Alerts Allergen Type Severity Reaction Status Last Updated Quinolones Allergy Unknown Active 09/27/15 Ciprofloxacin Allergy Unknown Active 01/27/15 Immunizations No immunization records. Vital Signs Acute Vital Signs Vital Response Date/Time Temperature (Fahrenheit) 97.9 04/30/2016 2:09pm Pulse 78 bpm 04/30/2016 2:09pm Respirations 16 04/30/2016 2:09pm Height 5 ft 10 in Weight 134 lb Body Mass Index 19.0 kg/m^2 Results Pending Laboratory Results Test Name Collection Date/Time Procedures Procedure Status Date Provider(s) TTE W/DOPPLER COMPLETE Completed 04/01/16 Encounters Encounter Location Arrival/Admit Date Discharge/Depart Date Attending Provider Departed Maria De Jesus 04/30/16 10:24am 04/30/16 1:45pm [facility] EZ Lagos DO Registered Maria De Jesus 04/01/16 12:49pm ROMINA [facility] Recent Diagnosis
--- OUTSIDE RECORDS SUMMARY | 2017-11-27 15:15 | External Medical Summary | Continuity of Care Document ---
:1960 Author Organization [facility] Support Name Relationship Address Phone LENNOX FERRARI Tabitha LANGE Unavailable [address] [place] [address] TERE VANEGAS MD Unavailable [address] [facility] Unavailable [address] [place] [address] JESSICA SMALLWOOD Unavailable [place] [address] Insurance Providers Payer Name Policy Number Subscriber Name Relationship [facility] [id number] Martha Mg 18 Self / Same As [...] Smoking Status Former smoker Hospital Discharge Instructions Current inpatient/outpatient. Discharge instructions are currently unavailable. Plan of Care Prescriptions Functional Status No functional status results. Allergies, Adverse Reactions, Alerts Allergen Type Severity Reaction Status Last Updated Quinolones Allergy Unknown Active 09/27/15 Ciprofloxacin Allergy Unknown Active 01/27/15 Immunizations No immunization records. Vital Signs No known vital signs results. Results Laboratory Results Test Name Result Units Flags Reference Collection Result Comments Date/Time Date/Time White Blood Count 5.26 10^3uL 4.0-11.0 11/03/2016 11/03/2016 2:50pm 4:14pm Red Blood Count 3.69 10^6uL L 4.00-5.00 11/03/2016 11/03/2016 2:50pm 4:14pm Hemoglobin 11.6 g/dL L 12.0-15.5 11/03/2016 11/03/2016 2:50pm 4:14pm Hematocrit 35.10 % 35.00-45.00 11/03/2016 11/03/2016 2:50pm 4:14pm Mean Corpuscular 95 FL 80-100 11/03/2016 11/03/2016 Volume 2:50pm 4:14pm Mean Corpuscular 31.4 PG 26.0-34.0 11/03/2016 11/03/2016 Hemoglobin 2:50pm 4:14pm Mean Corpuscular 33.0 g/dL 31.0-37.0 11/03/2016 11/03/2016 Hemoglobin Concent 2:50pm 4:14pm Red Cell 13.2 % 11.8-15.6 11/03/2016 11/03/2016 Distribution Width 2:50pm 4:14pm Platelet Count 226 10^3uL 150-450 11/03/2016 11/03/2016 2:50pm 4:14pm Mean Platelet 9.4 FL 6.0-9.5 11/03/2016 11/03/2016 Volume 2:50pm 4:14pm Differential Total 100 11/03/2016 11/03/2016 Cells Counted 2:50pm 4:17pm Segmented 67 % 51-67 11/03/2016 11/03/2016 Neutrophils % 2:50pm 4:17pm Band Neutrophils % 0 % 0-6 11/03/2016 11/03/2016 2:50pm 4:17pm Lymphocytes % 26 % 20-46 11/03/2016 11/03/2016 (Manual) 2:50pm 4:17pm Monocytes % 5 % 3-11 11/03/2016 11/03/2016 (Manual) 2:50pm 4:17pm Eosinophils % 0 % 0-4 11/03/2016 11/03/2016 (Manual) 2:50pm 4:17pm Basophils % 2 % 0-2 11/03/2016 11/03/2016 (Manual) 2:50pm 4:17pm Neutrophils # 3.5 # 11/03/2016 11/03/2016 2:50pm 4:17pm Absolute Band 0.0 # 11/03/2016 11/03/2016 Neutrophils 2:50pm 4:17pm Lymphocytes # 1.4 # 11/03/2016 11/03/2016 2:50pm 4:17pm Monocytes # 0.3 # 11/03/2016 11/03/2016 2:50pm 4:17pm Eosinophils # 0.0 # 11/03/2016 11/03/2016 2:50pm 4:17pm Basophils # 0.1 # 11/03/2016 11/03/2016 (Manual) 2:50pm 4:17pm Blood Morphology NORMAL NORMAL 11/03/2016 11/03/2016 Comment 2:50pm 4:17pm Volume Urine 12 mL 08/26/2016 08/26/2016 Centrifuged 5:50pm 7:20pm Urine Collection CLEAN 08/26/2016 08/26/2016 Type CATCH 5:50pm 7:20pm Urine Color Yellow 08/26/2016 08/26/2016 5:50pm 7:13pm Urine Clarity Slightly 08/26/2016 08/26/2016 Cloudy 5:50pm 7:13pm Urine pH 7.5 5.0 - 8.0 08/26/2016 08/26/2016 5:50pm 7:13pm Urine Specific 1.015 1.005-1.030 08/26/2016 08/26/2016 [place] 5:50pm 7:13pm Urine Protein Negative 08/26/2016 08/26/2016 5:50pm 7:13pm Urine Glucose (UA) Negative Negative 08/26/2016 08/26/2016 5:50pm 7:13pm Urine Blood Trace-lyse H Negative 08/26/2016 08/26/2016 d 5:50pm 7:13pm Urine Ketones Negative Negative 08/26/2016 08/26/2016 5:50pm 7:13pm Urine Nitrite Negative Negative 08/26/2016 08/26/2016 5:50pm 7:13pm Urine Bilirubin Negative Negative 08/26/2016 08/26/2016 5:50pm 7:13pm Urine Urobilinogen 0.2 mg/dL 0.2-1.0 08/26/2016 08/26/2016 5:50pm 7:13pm Urine Leukocyte Negative Negative 08/26/2016 08/26/2016 Esterase 5:50pm 7:13pm Urine RBC 2-5 /HPF 08/26/2016 08/26/2016 5:50pm 7:20pm Urine Microscopic 2-5 /HPF 08/26/2016 08/26/2016 WBC 5:50pm 7:20pm Urine Bacteria Rare /HPF Negative 08/26/2016 08/26/2016 5:50pm 7:20pm Urine Squamous 5-10 /LPF 08/26/2016 08/26/2016 Epithelial Cells 5:50pm 7:20pm Urine Mucus 1+ 08/26/2016 08/26/2016 5:50pm 7:20pm Sodium Level 142 mmol/L 135-150 11/03/2016 11/03/2016 2:50pm 3:13pm Potassium Level 3.2 mmol/L L 3.5-5.1 11/03/2016 11/03/2016 2:50pm 3:13pm Chloride Level 103 mmol/L 98-108 11/03/2016 11/03/2016 2:50pm 3:13pm Carbon Dioxide 30 mmol/L H 22-29 11/03/2016 11/03/2016 Level 2:50pm 3:13pm Anion Gap 11.2 MEQ/L 3-15 11/03/2016 11/03/2016 2:50pm 3:13pm Blood Urea Nitrogen 14 mg/dL 7-18 11/03/2016 11/03/2016 2:50pm 3:13pm Creatinine 0.69 mg/dL 0.6-1.2 11/03/2016 11/03/2016 2:50pm 3:13pm BUN/Creatinine 20 10-20 11/03/2016 11/03/2016 Ratio 2:50pm 3:13pm Estimat Glomerular 106.9 11/03/2016 11/03/2016 Filtration Rate 2:50pm 3:13pm Estimated GFR 88.3 11/03/2016 11/03/2016 (Non- 2:50pm 3:13pm [place] Glucose Level 84 mg/dL 70-110 11/03/2016 11/03/2016 2:50pm 3:13pm Calculated 273 mosm/L L 280-300 11/03/2016 11/03/2016 Osmolality 2:50pm 3:13pm Calcium Level 8.9 mg/dL 8.8-10.8 11/03/2016 11/03/2016 2:50pm 3:13pm Calcium/Ionized 4.0 mg/dL 3.8-4.6 11/03/2016 11/03/2016 Calcium Ratio 2:50pm 3:13pm Phosphorus Level 4.4 mg/dL 2.4-4.9 11/03/2016 11/03/2016 2:50pm 3:13pm Magnesium Level 1.9 mg/dL 1.6-2.3 11/03/2016 11/03/2016 2:50pm 3:13pm Total Bilirubin 0.3 mg/dL 0.1-1.0 11/03/2016 11/03/2016 2:50pm 3:13pm Alkaline 103 U/L 38-126 11/03/2016 11/03/2016 Phosphatase 2:50pm 3:13pm Aspartate Amino 29 U/L 15-37 11/03/2016 11/03/2016 Transf (AST/SGOT) 2:50pm 3:13pm Alanine 34 U/L 30-65 11/03/2016 11/03/2016 Aminotransferase 2:50pm 3:13pm (ALT/SGPT) Lactate 477 U/L 313-618 11/03/2016 11/03/2016 Dehydrogenase 2:50pm 3:13pm Total Protein 6.8 g/dL 6.4-8.5 11/03/2016 11/03/2016 2:50pm 3:13pm Albumin 3.8 g/dL 3.4-5.0 11/03/2016 11/03/2016 2:50pm 3:13pm Albumin/Globulin 1.266 1.1-1.8 11/03/2016 11/03/2016 Ratio 2:50pm 3:13pm Procedures Procedure Status Date Provider(s) CT THORAX W/DYE Completed 10/29/16 CT ABD & PELV 1/> REGNS Completed 10/29/16 TTE W/DOPPLER COMPLETE Completed 10/29/16 Completed 10/29/16 Encounters Encounter Location Arrival/Admit Date Discharge/Depart Date Attending Provider Registered [facility] De [facility] 08/26/16 5:52pm 11/24/16 11:59pm TERE VANEGAS [facility]
--- OUTSIDE RECORDS SUMMARY | 2017-11-27 15:15 | External Medical Summary | Summary of Care ---
:1960 Author Name Joslyn Dee M.D. Address Unavailable Unavailable , Care Team Providers Name Role Phone Lexie Carla Unavailable Unavailable Joslyn Dee M.D. Unavailable Unavailable Darleen Hooper Unavailable Unavailable Unavailable Unavailable Unavailable Functional Status Functional Status Health Issues Name Dates Details Functional status health issues are not documented Status: Cognitive Status Health Issues Name Dates Details Cognitive status health issues are not documented Status: Problems Name Dates Details Injury of leg, right (959.7, S89.91XA) Status: Active Skin infection (686.9, L08.9) Status: Active Neuropathy (355.9, G62.9) Status: Active Chronic neck pain (723.1, M54.2) Status: Active DDD (degenerative disc disease), cervical (722.4, M50.30) Status: Active Breast cancer, female (174.9, C50.919) Status: Active Medications Name Dates Details FLUoxetine HCl - 20 MG Oral Capsule TAKE 3 CAPSULES AT BEDTIME. Refills: 0 Start 17-Apr-2016 Active ALPRAZolam 1 MG Oral Tablet TAKE 1 TABLET Daily PRN Refills: 0 Start 17-Apr-2016 Active Percocet 10-325 MG Oral Tablet TAKE 2 TABLET Every 4 hours Refills: 0 Start 17-Apr-2016 Active Lasix 20 MG Oral Tablet TAKE 1 TABLET DAILY DIRECTED. Refills: 0 Start 17-Apr-2016 Active Carisoprodol 350 MG Oral Tablet TAKE 1 TABLET Every 8 hours Refills: 0 Start 17-Apr-2016 Active Perjeta 420 MG/14ML Intravenous Solution Every Thursday Refills: 0 Start 17-Apr-2016 Active Herceptin 440 MG Intravenous Solution Reconstituted Every Thursday Refills: 0 Start 17-Apr-2016 Active Cephalexin 500 MG Oral Tablet TAKE 1 TABLET 3 TIMES DAILY. Quantity: 30 Refills: 0 Carla Owen Start 17-Apr-2016 Active HYDROmorphone HCl - 4 MG Oral Tablet Take 1 to 2 po every 4-6 hours prn.*max 4 per day*Must last [address] Dee. Quantity: 120 Refills: 0 Kurt Dee M.D. Start 13-Apr-2017 Active Allergies and Adverse Reactions Name Dates Details No Known Drug Allergies (Allergy) Status: Active Procedures Procedure Dates Details Procedures not documented Immunization Name Dates Details Immunizations not documented Social History Name Dates Details - Status: Smoking Status Name Dates Details Former smoker Vital Signs Date Test Result Details No Known Vitals to report Results Date Description Value Details Results not documented Plan of Care Name Dates Details Planned Observations Planned Goals not documented Interventions Provided Medication ChangesHYDROmorphone HCl - 4 MG Oral Tablet - Start Instructions Name Dates Details Instructions not documented Encounters Appointment; Carla Owen On 17-Apr-2016 Encounter Diagnosis: Problem not documented 16:25
--- OUTSIDE RECORDS SUMMARY | 2017-11-27 15:15 | External Medical Summary | Continuity of Care Document ---
:1960 Author Organization [facility] Support Name Relationship Address Phone PAGE, TERE Calderón MD Unavailable [address] [facility] Unavailable [address] [place] [address] JESSICA VALENTIN [place]available [place] [address] Insurance Providers Payer Name Policy Number Subscriber Name Relationship [facility] [id number] Martha Gates A 19 Self / Same [...] Result Comments Date/Time Date/Time White Blood Count 5.16 10^3uL 4.0-11.0 01/26/2017 01/26/2017 1:34pm 1:59pm Red Blood Count 3.57 10^6uL L 4.00-5.00 01/26/2017 01/26/2017 1:34pm 1:59pm Hemoglobin 11.6 g/dL L 12.0-15.5 01/26/2017 01/26/2017 1:34pm 1:59pm Hematocrit 34.20 % L 35.00-45.00 01/26/2017 01/26/2017 1:34pm 1:59pm Mean Corpuscular 96 FL 80-100 01/26/2017 01/26/2017 Volume 1:34pm 1:59pm Mean Corpuscular 32.5 PG 26.0-34.0 01/26/2017 01/26/2017 Hemoglobin 1:34pm 1:59pm Mean Corpuscular 33.9 g/dL 31.0-37.0 01/26/2017 01/26/2017 Hemoglobin Concent 1:34pm 1:59pm Red Cell 14.0 % 11.8-15.6 01/26/2017 01/26/2017 Distribution Width 1:34pm 1:59pm Platelet Count 238 10^3uL 150-450 01/26/2017 01/26/2017 1:34pm 1:59pm Mean Platelet 9.4 FL 6.0-9.5 01/26/2017 01/26/2017 Volume 1:34pm 1:59pm Differential Total 100 01/26/2017 01/26/2017 Cells Counted 1:34pm 2:41pm Segmented 71 % H 51-67 01/26/2017 01/26/2017 Neutrophils % 1:34pm 2:41pm Band Neutrophils % 0 % 0-6 01/26/2017 01/26/2017 1:34pm 2:41pm Lymphocytes % 20 % 20-46 01/26/2017 01/26/2017 (Manual) 1:34pm 2:41pm Monocytes % 4 % 3-11 01/26/2017 01/26/2017 (Manual) 1:34pm 2:41pm Eosinophils % 5 % H 0-4 01/26/2017 01/26/2017 (Manual) 1:34pm 2:41pm Basophils % 0 % 0-2 01/26/2017 01/26/2017 (Manual) 1:34pm 2:41pm Neutrophils # 3.7 # 01/26/2017 01/26/2017 1:34pm 2:41pm Absolute Band 0.0 # 01/26/2017 01/26/2017 Neutrophils 1:34pm 2:41pm Lymphocytes # 1.0 # 01/26/2017 01/26/2017 1:34pm 2:41pm Monocytes # 0.2 # 01/26/2017 01/26/2017 1:34pm 2:41pm Eosinophils # 0.3 # 01/26/2017 01/26/2017 1:34pm 2:41pm Basophils # 0.0 # 01/26/2017 01/26/2017 (Manual) 1:34pm 2:41pm Blood Morphology NORMAL NORMAL 01/26/2017 01/26/2017 Comment 1:34pm 2:41pm Sodium Level 142 mmol/L 135-150 01/26/2017 01/26/2017 1:34pm 2:16pm Potassium Level 3.8 mmol/L 3.5-5.1 01/26/2017 01/26/2017 1:34pm 2:16pm Chloride Level 106 mmol/L 98-108 01/26/2017 01/26/2017 1:34pm 2:16pm Carbon Dioxide 27 mmol/L 22-29 01/26/2017 01/26/2017 Level 1:34pm 2:16pm Anion Gap 12.5 MEQ/L 3-15 01/26/2017 01/26/2017 1:34pm 2:16pm Blood Urea Nitrogen 18 mg/dL 7-18 01/26/2017 01/26/2017 1:34pm 2:16pm Creatinine 0.67 mg/dL 0.6-1.2 01/26/2017 01/26/2017 1:34pm 2:16pm BUN/Creatinine 27 H 10-20 01/26/2017 01/26/2017 Ratio 1:34pm 2:16pm Estimat Glomerular 110.2 01/26/2017 01/26/2017 Filtration Rate 1:34pm 2:16pm Estimated GFR 91.1 01/26/2017 01/26/2017 (Non- 1:34pm 2:16pm [place] Glucose Level 98 mg/dL # 70-110 01/26/2017 01/26/2017 1:34pm 2:16pm Calculated 275 mosm/L L 280-300 01/26/2017 01/26/2017 Osmolality 1:34pm 2:16pm Calcium Level 8.8 mg/dL 8.8-10.8 01/26/2017 01/26/2017 1:34pm 2:16pm Calcium/Ionized 3.9 mg/dL 3.8-4.6 01/26/2017 01/26/2017 Calcium Ratio 1:34pm 2:16pm Phosphorus Level 4.3 mg/dL 2.4-4.9 01/26/2017 01/26/2017 1:34pm 2:16pm Magnesium Level 1.8 mg/dL 1.6-2.3 01/26/2017 01/26/2017 1:34pm 2:16pm Total Bilirubin 0.5 mg/dL 0.1-1.0 01/26/2017 01/26/2017 1:34pm 2:16pm Alkaline 104 U/L 38-126 01/26/2017 01/26/2017 Phosphatase 1:34pm 2:16pm Aspartate Amino 36 U/L 15-37 01/26/2017 01/26/2017 Transf (AST/SGOT) 1:34pm 2:16pm Alanine 39 U/L 30-65 01/26/2017 01/26/2017 Aminotransferase 1:34pm 2:16pm (ALT/SGPT) Lactate 535 U/L 313-618 01/26/2017 01/26/2017 Dehydrogenase 1:34pm 2:16pm Total Protein 7.1 g/dL 6.4-8.5 01/26/2017 01/26/2017 1:34pm 2:16pm Albumin 3.7 g/dL 3.4-5.0 01/26/2017 01/26/2017 1:34pm 2:16pm Albumin/Globulin 1.088 L 1.1-1.8 01/26/2017 01/26/2017 Ratio 1:34pm 2:16pm Procedures No known history of procedures. Encounters Encounter Location Arrival/Admit Date Discharge/Depart Date Attending Provider Discharged Maria De Jesus 12/15/16 12:43pm 03/15/17 11:59pm TERE VANEGAS [facility]
--- OUTSIDE RECORDS SUMMARY | 2017-11-27 15:15 | External Medical Summary ---
:1960 Author Organization [employer] Care Team Providers Name Role Phone Sandie Darleen Provider Role Unavailable Allergies, Adverse Reactions, Alerts Substance Reaction Event Type sulfa drugs unknown Non Drug Allergy Problems Problem Type Condition Code Onset Dates Condition Status Assessment Dysuria R30.0 Active Assessment Urinary tract infection, site not N39.0 Active specified Medications Medication Code Code Instructions Start End Status Dosage System Date Date Potassium NDC 40544-13 Orally Once a not Gluconate 761 day defined Carisoprodol NDC 76797-56 350 MG Orally 1 tablet 76-01 Four times a day as needed [place] + [place] [address]-09 500-1000-40 not 732 MG-UNT-MCG defined Orally Probiotic NDC 36665-22 Orally bid gummies 543 Docusate Sodium NDC 12611-48 100 MG Orally 1 capsule 63-00 BID as needed MiraLax NDC 11107-46 Orally not 34-02 defined Oxycodone-Acetamin NDC 70135-76 10-325 MG Orally 2 tablet ophen 06-01 every 6 hrs as needed Cyanocobalamin NDC 0 50 MCG Orally 1 tablet Once a day Fiber Select NDC 96022-86 Orally daily to 1 Gummies 387 tid Fluoxetine NDC 0 60 mg daily not defined Bactrim DS NDC 07248-58 800-160 MG Sep 04, Sep 09, 1 tablet 60-01 Orally Twice a 2015 2015 day Multivitamins NDC 20785-79 Orally not 041 defined Procedures Procedure Coding System Code Date OFFICE VISIT, EST-LOW COMPLEXITY (15 MIN.) CPT-4 61322 Sep 04, 2016 Vital Signs Date/Time: Sep 04, 2016 Temperature 99 F Height 68.5 in Weight 140.5 lbs Blood Pressure Diastolic 90 mm Hg Blood Pressure Systolic 150 mm Hg Cardiac Monitoring Heart Rate 70 /min BMI 21.05 Index Oximetry 95 % Respiratory Rate 16 /min Results No Known Results Summary Purpose [employer]Works Submission
--- OUTSIDE RECORDS SUMMARY | 2017-11-27 15:15 | External Medical Summary | Summary of Care ---
:1960 Author Name Joslyn Dee M.D. Address Unavailable Unavailable , Care Team Providers Name Role Phone Carla Owen Unavailable Unavailable Joslyn Dee M.D. Unavailable Unavailable [...]
--- OUTSIDE RECORDS SUMMARY | 2017-11-27 15:15 | External Medical Summary | Continuity of Care Document ---
:1960 Author Organization [facility] Care Team Providers Name Role Phone TERE RICKS MD Unavailable Unavailable Insurance Providers Payer Name Policy Number Subscriber Name Relationship Self Pay Advance Directives Directive Response Recorded Date/Time Advanced [...] worrisome symptoms. * Emergency Department phone number: [phone], x [phone]* MEDICAL RECORD If you need copies of your X-rays, call [phone] x [phone]. If you need copies of [...] the billing parties for services. SERVICE BILLING DEMOCRAT Emergency Room Services [facility] Physician Services [facility] X-[facility] Patients will receive bills for services from the appropriate provider. If you have any questions about your [facility] bill, our staff will be happy to assist you. Please call [phone], and ask for the billing department. THANK YOU for choosing [facility] as your emergency care provider! [...] lb Body Mass Index 19.0 kg/m^2 Results Laboratory Results Test Name Result Units Flags Reference Collection Result Comments Date/Time Date/Time White Blood 4.95 10^3uL 4.0-11.0 04/29/2016 04/29/2016 Count 4:31pm 5:15pm Red Blood Count 3.39 10^6uL L 4.00-5.00 04/29/2016 04/29/2016 4:31pm 5:15pm Hemoglobin 10.9 g/dL L 12.0-15.5 04/29/2016 04/29/2016 4:31pm 5:15pm Hematocrit 32.90 % L 35.00-45.0 04/29/2016 04/29/2016 0 4:31pm 5:15pm Mean 97 FL 80-100 04/29/2016 04/29/2016 Corpuscular 4:31pm 5:15pm Volume Mean 32.2 PG 26.0-34.0 04/29/2016 04/29/2016 Corpuscular 4:31pm 5:15pm Hemoglobin Mean 33.1 g/dL 31.0-37.0 04/29/2016 04/29/2016 Corpuscular 4:31pm 5:15pm Hemoglobin Concent Red Cell 13.7 % 11.8-15.6 04/29/2016 04/29/2016 Distribution 4:31pm 5:15pm Width Platelet Count 260 10^3uL 150-450 04/29/2016 04/29/2016 4:31pm 5:15pm Mean Platelet 9.4 FL 6.0-9.5 04/29/2016 04/29/2016 Volume 4:31pm 5:15pm Neutrophils (%) 67 % 51-67 04/29/2016 04/29/2016 (Auto) 4:31pm 5:15pm Lymphocytes (%) 25 % 20-46 04/29/2016 04/29/2016 (Auto) 4:31pm 5:15pm Monocytes (%) 6 % 3-11 04/29/2016 04/29/2016 (Auto) 4:31pm 5:15pm Eosinophils (%) 1 % 0-4 04/29/2016 04/29/2016 (Auto) 4:31pm 5:15pm Basophils (%) 0 % 0-2 04/29/2016 04/29/2016 (Auto) 4:31pm 5:15pm Neutrophils # 3.3 X10^3 04/29/2016 04/29/2016 (Auto) 4:31pm 5:15pm Lymphocytes # 1.2 X10^3 04/29/2016 04/29/2016 (Auto) 4:31pm 5:15pm Monocytes # 0.3 X10^3 04/29/2016 04/29/2016 (Auto) 4:31pm 5:15pm Eosinophils # 0.1 10^3uL 04/29/2016 04/29/2016 (Auto) 4:31pm 5:15pm Basophils # 0.0 10^3uL 04/29/2016 04/29/2016 (Auto) 4:31pm 5:15pm Differential 100 03/11/2016 03/11/2016 Total Cells 1:08pm 1:31pm Counted Segmented 63 % 51-67 03/11/2016 03/11/2016 Neutrophils % 1:08pm 1:31pm Band 0 % 0-6 03/11/2016 03/11/2016 Neutrophils % 1:08pm 1:31pm Lymphocytes % 28 % 20-46 03/11/2016 03/11/2016 (Manual) 1:08pm 1:31pm Monocytes % 7 % 3-11 03/11/2016 03/11/2016 (Manual) 1:08pm 1:31pm Eosinophils % 2 % 0-4 03/11/2016 03/11/2016 (Manual) 1:08pm 1:31pm Basophils % 0 % 0-2 03/11/2016 03/11/2016 (Manual) 1:08pm 1:31pm Neutrophils # 3.0 # 03/11/2016 03/11/2016 1:08pm 1:31pm Absolute Band 0.0 # 03/11/2016 03/11/2016 Neutrophils 1:08pm 1:31pm Lymphocytes # 1.3 # 03/11/2016 03/11/2016 1:08pm 1:31pm Monocytes # 0.3 # 03/11/2016 03/11/2016 1:08pm 1:31pm Eosinophils # 0.1 # 03/11/2016 03/11/2016 1:08pm 1:31pm Basophils # 0.0 # 03/11/2016 03/11/2016 (Manual) 1:08pm 1:31pm Blood NORMAL NORMAL 03/11/2016 03/11/2016 Morphology 1:08pm 1:31pm Comment Volume Urine <10mL 04/01/2016 04/01/2016 Centrifuged Unspun 5:17pm 6:39pm Urine CLEAN 04/01/2016 04/01/2016 Collection Type CATCH 5:17pm 6:39pm Urine Color Yellow 04/01/2016 04/01/2016 5:17pm 6:38pm Urine Clarity Clear 04/01/2016 04/01/2016 5:17pm 6:38pm Urine pH 7.5 5.0 - 8.0 04/01/2016 04/01/2016 5:17pm 6:38pm Urine Specific 1.020 1.005-1.03 04/01/2016 04/01/2016 [place] 0 5:17pm 6:38pm Urine Protein Negative Negative 04/01/2016 04/01/2016 5:17pm 6:38pm Urine Glucose Negative Negative 04/01/2016 04/01/2016 (UA) 5:17pm 6:38pm Urine RBC Trace-int H Negative 04/01/2016 04/01/2016 (Auto) act 5:17pm 6:38pm Urine Ketones Trace H Negative 04/01/2016 04/01/2016 5:17pm 6:38pm Urine Nitrite Negative Negative 04/01/2016 04/01/2016 5:17pm 6:38pm Urine Bilirubin Negative Negative 04/01/2016 04/01/2016 5:17pm 6:38pm Urine 0.2 mg/dL 0.2-1.0 04/01/2016 04/01/2016 Urobilinogen 5:17pm 6:38pm Urine Leukocyte Negative Negative 04/01/2016 04/01/2016 Esterase 5:17pm 6:38pm Urine RBC 5-10 /HPF H 04/01/2016 04/01/2016 5:17pm 6:39pm Urine WBC 2-5 /HPF 04/01/2016 04/01/2016 5:17pm 6:39pm Urine Bacteria 2+ /HPF H 04/01/2016 04/01/2016 5:17pm 6:39pm Urine Squamous 10-20 /LPF 04/01/2016 04/01/2016 Epithelial 5:17pm 6:39pm Cells Urine Mucus 1+ 04/01/2016 04/01/2016 5:17pm 6:39pm Urine Hyaline 1+ /LPF H 04/01/2016 04/01/2016 Casts 5:17pm 6:39pm Sodium Level 140 mmol/L 135-150 04/29/2016 04/29/2016 4:31pm 5:37pm Potassium Level 4.1 mmol/L 3.5-5.1 04/29/2016 04/29/2016 4:31pm 5:37pm Chloride Level 106 mmol/L 98-108 04/29/2016 04/29/2016 4:31pm 5:37pm Carbon Dioxide 29 mmol/L 22-29 04/29/2016 04/29/2016 Level 4:31pm 5:37pm Anion Gap 9.1 MEQ/L 3-15 04/29/2016 04/29/2016 4:31pm 5:37pm Blood Urea 16 mg/dL 7-18 04/29/2016 04/29/2016 Nitrogen 4:31pm 5:37pm Creatinine 0.54 mg/dL L 0.6-1.2 04/29/2016 04/29/2016 4:31pm 5:37pm BUN/Creatinine 30 H 10-20 04/29/2016 04/29/2016 Ratio 4:31pm 5:37pm Estimat 141.8 04/29/2016 04/29/2016 Glomerular 4:31pm 5:37pm Filtration Rate Estimated GFR 117.2 04/29/2016 04/29/2016 (Non- 4:31pm 5:37pm [place] Glucose Level 117 mg/dL H 70-110 04/29/2016 04/29/2016 4:31pm 5:37pm Calculated 273 mosm/L L 280-300 04/29/2016 04/29/2016 Osmolality 4:31pm 5:37pm Calcium Level 9.5 mg/dL 8.8-10.8 04/29/2016 04/29/2016 4:31pm 5:37pm Calcium/Ionized 4.3 mg/dL 3.8-4.6 04/29/2016 04/29/2016 Calcium Ratio 4:31pm 5:37pm Phosphorus 4.1 mg/dL 2.4-4.9 04/29/2016 04/29/2016 Level 4:31pm 5:37pm Magnesium Level 1.9 mg/dL 1.6-2.3 04/29/2016 04/29/2016 4:31pm 5:37pm Total Bilirubin 0.4 mg/dL 0.1-1.0 04/29/2016 04/29/2016 4:31pm 5:37pm Alkaline 72 U/L 38-126 04/29/2016 04/29/2016 Phosphatase 4:31pm 5:37pm Aspartate Amino 24 U/L 15-37 04/29/2016 04/29/2016 Transf 4:31pm 5:37pm (AST/SGOT) Alanine 27 U/L L 30-65 04/29/2016 04/29/2016 Aminotransferas 4:31pm 5:37pm e (ALT/SGPT) Lactate 435 U/L 313-618 04/29/2016 04/29/2016 Dehydrogenase 4:31pm 5:37pm Total Protein 6.9 g/dL 6.4-8.5 04/29/2016 04/29/2016 4:31pm 5:37pm Albumin 3.7 g/dL 3.4-5.0 04/29/2016 04/29/2016 4:31pm 5:37pm Albumin/Globuli 1.156 1.1-1.8 04/29/2016 04/29/2016 n Ratio 4:31pm 5:37pm Carcinoembryoni 1.4 ng/mL 0.0-5.0 02/05/2016 02/06/2016 Normal Ranges For CEA; c Antigen 4:32pm 3:56pm Males: Non Smokers: <3.4 ng/ml Smokers: <6.2 ng/ml Females: Non Smokers: <2.5 ng/ml Smokers: <4.9 ng/ml CA 27.29 17.1 U/mL <=38.0 02/05/2016 02/08/2016 ADDITIONAL INFORMATION 4:32pm 5:57am The testing method is a chemiluminometric immunoassay manufactured by [employer] and performed on the [employer]. Values obtained with different assay methods or kits may be different and cannot be used interchangeably. Test results cannot be interpreted as absolute evidence for the presence or absence of malignant disease. Test Performed by: [facility] [address] [address] Food Service Attendant: Morena Ramsay, Ph.D. Pending Laboratory Results Test Name Collection Date/Time Procedures No known history of procedures. Encounters Encounter Location Arrival/Admit Date Discharge/Depart Date Attending Provider Departed Maria De Jesus 04/30/16 10:24am 04/30/16 1:45pm [facility] EZ Lagos DO Discharged Maria De Jesus 02/05/16 4:25pm 05/05/16 11:59pm ROMINA [facility] Recent Diagnosis
--- OUTSIDE RECORDS SUMMARY | 2017-11-27 15:15 | External Medical Summary | Summary of Care ---
:1960 Author Name Joslyn Dee M.D. Address Unavailable Unavailable , Care Team Providers Name Role Phone Zoëkalani Carla Unavailable Unavailable Joslyn Dee M.D. Unavailable [...] Details Planned Observations Planned Goals not documented Instructions Name Dates Details Instructions not documented Encounters Appointment; Kurt Dee M.D. On 13-Apr-2017 Encounter Diagnosis: Problem not documented 14:30 Appointment; Carla Owen On 17-Apr-2016 Encounter Diagnosis: Problem not documented 16:25
--- OUTSIDE RECORDS SUMMARY | 2017-11-27 15:15 | External Medical Summary ---
:1960 Author Organization [facility] Summary purpose CCDA Sent to [facility] Chief Complaint and Reason for Visit No authorized Reason for Visit (Admitting Diagnosis) is available for this visit. Problem list Condition Status Certainty Chronicity Onset .Abdominal pain Discharged .Intestinal obstruction Discharged Encounters The following conditions tracked for encounter diagnoses were recorded for this visit: Finding or Diagnosis Status Certainty Chronicity Onset .Abdominal pain Discharged .Intestinal obstruction Discharged Medications No medications recorded for this patient visit Allergies, adverse reactions, alerts Allergen Category Ingredient Status Reaction Severity Onset No Known Food No Known Food No Known Food Active Allergy Allergy Allergy Quinolones Drug Quinolones Active ciprofloxacin Drug ciprofloxacin Active Immunizations No immunizations recorded for this patient visit Relevant diagnostic tests and/or laboratory data RESULTS 11-33-141036:54:16 Discharge Summary improved, taking po, she plans to see Dr Ricks and gastroenterology she has seen in the past for follow up CBC 45-74-341925:15:00 Result Normal Range Units WBC 6.30 4.8-10.8 x103/mm3 Neutrophil % 64.7 50-70 % Lymph % 25.4 20-50 % Clarke % 8.3 1.0-9.0 % Eosinophil % 1.4 0-4 % Basophil % 0.2 0-2 % Neutrophil # 4.08 3.0-7.0 x103/mm3 Lymph # 1.60 1.0-4.0 x103/mm3 Clarke # 0.52 0.0-0.8 x103/mm3 Eosinophil # 0.09 0-0.5 x103/mm3 Basophil # 0.01 0-0.2 x103/mm3 RBC L 3.90 4.20-5.40 x103/mm3 HGB 12.7 12.0-16.0 g/dl HCT 39.2 37.0-47.0 % MCV H 100.5 81-99 FL MCH H 32.6 27.0-31.0 pg MCHC 32.4 32.0-36.0 g/dl RDW 13.0 12-15 % Platelet 208 150-400 x103/mm3 MPV 9.6 6.0-10.0 FL :05:00 Result Normal Range Units WBC 7.77 4.8-10.8 x103/mm3 Neutrophil % H 71.5 50-70 % Lymph % L 18.8 20-50 % Clarke % 9.0 1.0-9.0 % Eosinophil % 0.4 0-4 % Basophil % 0.3 0-2 % Neutrophil # 5.56 3.0-7.0 x103/mm3 Lymph # 1.46 1.0-4.0 x103/mm3 Clarke # 0.70 0.0-0.8 x103/mm3 Eosinophil # 0.03 0-0.5 x103/mm3 Basophil # 0.02 0-0.2 x103/mm3 RBC L 4.17 4.20-5.40 x103/mm3 HGB 13.5 12.0-16.0 g/dl HCT 41.5 37.0-47.0 % MCV H 99.5 81-99 FL MCH H 32.4 27.0-31.0 pg MCHC 32.5 32.0-36.0 g/dl RDW 13.2 12-15 % Platelet 252 150-400 x103/mm3 MPV 9.6 6.0-10.0 FL :10:00 Result Normal Range Units WBC 9.76 4.8-10.8 x103/mm3 Neutrophil % H 80.6 50-70 % Lymph % L 11.6 20-50 % Clarke % 7.4 1.0-9.0 % Eosinophil % 0.3 0-4 % Basophil % 0.1 0-2 % Neutrophil # H 7.87 3.0-7.0 x103/mm3 Lymph # 1.13 1.0-4.0 x103/mm3 Clarke # 0.72 0.0-0.8 x103/mm3 Eosinophil # 0.03 0-0.5 x103/mm3 Basophil # 0.01 0-0.2 x103/mm3 RBC 4.65 4.20-5.40 x103/mm3 HGB 15.3 12.0-16.0 g/dl HCT 45.9 37.0-47.0 % MCV 98.7 81-99 FL MCH H 32.9 27.0-31.0 pg MCHC 33.3 32.0-36.0 g/dl RDW 13.1 12-15 % Platelet 277 150-400 x103/mm3 MPV 9.7 6.0-10.0 FL Urinalysis :50:00 Result Normal Range Units Site VOID Color Dark yello YELLOW COLOR OF URINE INTERFERES WITH SOME TESTS. SOME DIPSTICK TESTS MAY SHOW FALSE POSITIVES DUE TO URINE COLOR OF THIS SPECIMEN.[facility] Urine Appearance Clear Specific [place] 1.030 1.005-1.030 pH 5.5 5.0-9.0 Protein AB 1+ Negative Glucose AB Trace Negative Ketones AB 1+ Negative Bilirubin AB 2+ Negative Blood Negative Negative Nitrite Negative Negative Urobilinogen 0.2 0.20 mg/dl Leukocyte Negative Negative Chemistry Group :15:00 Result Normal Range Units Sodium L 133 134-145 mmol/L Potassium 4.6 3.6-5.0 mmol/L Chloride L 95 98-107 mmol/L CO2 30 22-30 mmol/L Glucose 105 75-110 mg/dl BUN H 36 9-20 mg/dl Creatinine 1.44 0.8-1.7 mg/dl Total Protein L 5.8 6.3-8.2 g/dl Albumin L 3.1 3.5-5.0 g/dl Calcium 8.5 8.4-10.2 mg/dl Alk Phos 83 38-126 U/L AST 17 14-36 U/L ALT 22 11-66 U/L T Bili .4 0.2-1.3 mg/dl A/G Ratio 1.1 Ratio :05:00 Result Normal Range Units Sodium 136 134-145 mmol/L Potassium 4.2 3.6-5.0 mmol/L Chloride L 92 98-107 mmol/L CO2 H 33 22-30 mmol/L Glucose H 140 75-110 mg/dl BUN H 32 9-20 mg/dl Creatinine 1.27 0.8-1.7 mg/dl Total Protein 6.3 6.3-8.2 g/dl Albumin L 3.3 3.5-5.0 g/dl Calcium 8.9 8.4-10.2 mg/dl Alk Phos 89 38-126 U/L AST 15 14-36 U/L ALT 22 11-66 U/L T Bili .4 0.2-1.3 mg/dl A/G Ratio 1.1 Ratio [id number]:10:00 Result Normal Range Units Sodium 139 134-145 mmol/L Potassium 3.9 3.6-5.0 mmol/L Chloride L 89 98-107 mmol/L CO2 H 34 22-30 mmol/L Glucose H 137 75-110 mg/dl BUN H 26 9-20 mg/dl Creatinine .94 0.8-1.7 mg/dl Total Protein 7.7 6.3-8.2 g/dl Albumin 4.0 3.5-5.0 g/dl Calcium 9.4 8.4-10.2 mg/dl Alk Phos 113 38-126 U/L AST 21 14-36 U/L ALT 30 11-66 U/L T Bili .5 0.2-1.3 mg/dl A/G Ratio 1.1 Ratio Amylase 79 30-110 U/L Urinalysis with Microscopic [id number]:50:00 Result Normal Range Units Site VOID Color Dark yello YELLOW COLOR OF URINE INTERFERES WITH SOME TESTS. SOME DIPSTICK TESTS MAY SHOW FALSE POSITIVES DUE TO URINE COLOR OF THIS SPECIMEN.[facility] Urine Appearance Clear Specific [place] 1.030 1.005-1.030 pH 5.5 5.0-9.0 Protein AB 1+ Negative Glucose AB Trace Negative Ketones AB 1+ Negative Bilirubin AB 2+ Negative Blood Negative Negative Nitrite Negative Negative Urobilinogen 0.2 0.20 mg/dl Leukocyte Negative Negative History of procedures Procedure Code Code Type Description Date Performed Performing Physician G0378 CPT-4 HOSPITAL OBSERVATION PER 2016 [place] [address] CPT-4 EMERGENCY DEPT VISIT 2016 MANUEL ABAD [address]9732 CPT-4 COMPREHEN METABOLIC 2016 MANUEL ABAD PANEL 64507 CPT-4 COMPLETE CBC, 2016 MANUEL ABAD AUTOMATED 47663 CPT-4 ASSAY OF AMYLASE 2016 MANUEL ABAD J2550 CPT-4 PROMETHAZINE HCL 2016 MANUEL ABAD INJECTION J2175 CPT-4 MEPERIDINE HYDROCHL /100 2016 MANUEL ROJASAFF MG J1885 CPT-4 KETOROLAC TROMETHAMINE 01-15-2016 MANUEL RATZLAFF INJ J2405 CPT-4 ONDANSETRON HCL 01-15-2016 MANUEL RATZLAFF INJECTION J2405 CPT-4 ONDANSETRON HCL 01-15-2016 MANUEL RATZLAFF INJECTION J2405 CPT-4 ONDANSETRON HCL 01-15-2016 MANUEL RATZLAFF INJECTION J2405 CPT-4 ONDANSETRON HCL 01-15-2016 MANUEL RATZLAFF INJECTION J1885 CPT-4 KETOROLAC TROMETHAMINE 01-15-2016 MANUEL RATZLAFF INJ J1885 CPT-4 KETOROLAC TROMETHAMINE 01-15-2016 MANUEL RATZLAFF INJ J2175 CPT-4 MEPERIDINE HYDROCHL /100 01-15-2016 MANUEL RATZLAFF MG J2175 CPT-4 MEPERIDINE HYDROCHL /100 01-15-2016 MANUEL RATZLAFF MG J2405 CPT-4 ONDANSETRON HCL 01-16-2016 MANUEL RATZLAFF INJECTION J2405 CPT-4 ONDANSETRON HCL 01-16-2016 MANUEL RATZLAFF INJECTION J2405 CPT-4 ONDANSETRON HCL 01-16-2016 MANUEL RATZLAFF INJECTION J2405 CPT-4 ONDANSETRON HCL 01-16-2016 MANUEL RATZLAFF INJECTION J1885 CPT-4 KETOROLAC TROMETHAMINE 01-16-2016 MANUEL RATZLAFF INJ J1885 CPT-4 KETOROLAC TROMETHAMINE 01-16-2016 MANUEL RATZLAFF INJ J2175 CPT-4 MEPERIDINE HYDROCHL /100 01-16-2016 [place] [address] CPT-4 COMPREHEN METABOLIC 01-16-2016 MANUEL ABAD PANEL 27615 CPT-4 COMPLETE CBC, 01-16-2016 MANUEL ABAD AUTOMATED 65919 CPT-4 X-RAY EXAM OF ABDOMEN 01-16-2016 MANUEL ABAD 07606 CPT-4 X-RAY EXAM SERIES, 2016 MANUEL ABAD ABDOMEN 96552 CPT-4 COMPREHEN METABOLIC 01-15-2016 MANUEL ABAD PANEL 26515 CPT-4 COMPLETE CBC, 01-15-2016 MANUEL ABAD AUTOMATED 45206 CPT-4 URINALYSIS, AUTO, W/O 01-15-2016 MANUEL ABAD SCOPE 14843 CPT-4 THER/PROPH/DIAG IV INF, 01-15-2016 MANUEL ABAD INIT 96169 CPT-4 THER/PROPH/DIAG IV INF 01-16-2016 MANUEL GUADALUPE 39648 CPT-4 THER/PROPH/DIAG INJ, 2016 MANUEL ABAD SC/IM 79260 CPT-4 THER/PROPH/DIAG INJ, 2016 MANUEL ABAD SC/IM 98983 CPT-4 TX/PRO/DX INJ NEW DRUG 01-15-2016 MANUEL GATICAON 89094 CPT-4 TX/PRO/DX INJ NEW DRUG 01-15-2016 MANUEL GATICAON 11449 CPT-4 TX/PRO/DX INJ NEW DRUG 01-15-2016 MANUEL CURRY 15489 CPT-4 TX/PRO/DX INJ NEW DRUG 01-15-2016 MANUEL CURRY 75101 CPT-4 TX/PRO/DX INJ NEW DRUG 01-15-2016 MANUEL CURRY 37689 CPT-4 TX/PRO/DX INJ NEW DRUG 01-16-2016 MANUEL CURRY 31883 CPT-4 TX/PRO/DX INJ NEW DRUG 01-16-2016 MANUEL CURRY 84034 CPT-4 TX/PRO/DX INJ NEW DRUG 01-16-2016 MANUEL CURRY 96706 CPT-4 TX/PRO/DX INJ NEW DRUG 01-15-2016 MANUEL CURRY 45908 CPT-4 TX/PRO/DX INJ NEW DRUG 01-15-2016 MANUEL CURRY 66846 CPT-4 TX/PRO/DX INJ NEW DRUG 01-16-2016 MANUEL CURRY 83593 CPT-4 TX/PRO/DX INJ NEW DRUG 01-16-2016 MANUEL CURRY 92007 CPT-4 TX/PRO/DX INJ NEW DRUG 01-15-2016 MANUEL GUADALUPE 21767 CPT-4 TX/PRO/DX INJ NEW DRUG 01-16-2016 MANUEL CURRY Functional status Functional Status Finding Observation Time Weight Bearing Statu Full 11-00-197910:09 Transferring/Ambulat Independent 47-87-129335:08 Bathing Independent 61-64-616051:08 Dressing Independent 85-57-638776:08 Eating Independent 06-68-748009:08 Drinking Independent 15-26-178066:08 Toileting Independent 42-01-687349:08 Able to Turn Self in Independent 62-66-769340:08 Cognitive Status Finding Observation Time Level of Consciousne Alert :27 Oriented to Person Yes :[address] Yes :27 Oriented to Time Yes :27 Vital signs Type Value Date Respirations 20 : Pulse 84 : O2 Saturation 93% : Systolic Blood Press 108mm/HG : Diastolic Blood Pres 48mm/HG :00 Temperature (Fahr) 98.2Degrees :00 Height 69in 61-89-316034:00 Weight 149.8LB :00 Social history Type Value Smoking Status FORMER SMOKER Treatment Plan No treatment plan text is available for this visit. Hospital discharge instructions Diet Light diet as tolerated Activity Level As tolerated Personal Items Retur yes Med Dispensed by Pro called to pharmacy Flu Vaccine Given Current/Not Needed Pneumonia Vaccine Gi Current/Not Needed Follow up with JDR Appointment Date and 1 week Follow up with GI specialist Appointment Date and 1 week Other Instructions Call or return for any return, increased, or new symptoms.
--- OUTSIDE RECORDS SUMMARY | 2017-11-27 15:15 | External Medical Summary | Continuity of Care Document ---
:1960 Author Organization [facility] Care Team Providers Name Role Phone TERE RICKS MD Unavailable Unavailable Insurance Providers Payer Name Policy Number Subscriber Name Relationship [facility] [employer] [id number] Martha Mg 18 Self / Same As Patient Advance Directives Directive Response Recorded Date/Time Advanced Directives No 12/07/15 6:36pm Chief Complaint and Reason for Visit Chief Complaint SMALL BOWEL OBSTRUCTION Reason for Visit Breast cancer Constipation SBO (small bowel obstruction) Small bowel obstruction Problems Active Problems Medical Problem Onset Date Status Abdominal pain Unknown Acute Breast cancer Unknown Acute Constipation [...] Mg ORAL Every 6 Hours as 15 01/19/16 Mg needed for Nausea Magnesium Hydroxide 30 [...] Smoking Status Former smoker Hospital Discharge Instructions Patient's Instructions Instructions Instructions * During this hospitalization you were evaluated and treated for bowel obstruction due to severe constipation. This improved with bowel rest and with constipation medication. An aggressive bowel regimen has been recommended at discharge to ensure you are emptying your bowels well: * Take polyethylene glycol (miralax) every day as prescribed. * Take docusate (Colace) at least once daily as prescribed. * If you go 1 day with a bowel movement, take docusate (Colace) TWICE daily and add milk of mangesium up to twice daily. Continue that until you have had at least two bowel movements in 24 hours. * As part of your ongoing workup for metastatic cancer, Dr. Ricks has recommended you have an MRI of your brain. This test will be ordered through his office and will be scheduled as an outpatient test. * In case you have nausea, a short course of ondansetron (Zofran) has been provided. * Thank you for the opportunity to participate in your care. Please call with questions or concerns: [phone]. Activity Instructions As tolerated. Do not drive while taking narcotic medication. Doctor's Appointment Follow-up with Dr. Ricks as previously scheduled. Be sure to get your MRI performed. 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 Vital Signs Acute Vital Signs Vital Response Date/Time Temperature (Fahrenheit) 97.6 12/11/2015 11:46am Pulse 89 bpm 12/11/2015 11:46am Respirations 16 12/11/2015 11:46am Height 5 ft 9 in Weight 147 lb Body Mass Index 21.8 kg/m^2 Results Pending Laboratory Results Test Name Collection Date/Time Procedures Procedure Status Date Provider(s) CHEST X-RAY 2VW FRONTAL&LATL Completed 11/21/15 TTE W/DOPPLER COMPLETE Completed 11/21/15 Encounters Encounter Location Arrival/Admit Date Discharge/Depart Date Attending Provider Discharged Maria De Jesus 12/07/15 5:10pm 12/11/15 12:12pm [facility] LEANN Aggarwal MD Departed Maria De Jesus 12/06/15 9:18pm 12/07/15 1:53am [facility] LENNY Aggarwal MD Registered Maria De Jesus [facility] Constipation SBO (small bowel obstruction) Small bowel obstruction
[2017-11-27] MEDS ORDERED: SALINE FLUSH 10ml SYRINGE IVF PRN ×2 (15:47)
--- NOTE | 2017-11-27 16:05 | XRay Report ---
Indication: N/V/D PROCEDURE: PA view of the chest with supine and upright AP views of the abdomen Encounter: Initial Comparison: KUB dated January 25, 2016 FINDINGS: The lungs are clear. There is no abnormal airspace opacity, pleural effusion or pneumothorax identified. The heart size, pulmonary vasculature and mediastinum are stable. Left subclavian port catheter. Right axillary surgical clips. Cervical spine fusion hardware. There is no free air on the upright view. There are dilated small bowel loops with differential air-fluid levels seen. Small bowel dilatation up to 5.5 cm in diameter. Minimal colonic gas present. There is a metallic foreign body measuring 1.7 cm in length projecting over the right lower quadrant that may be within the distal small bowel or cecum based on the lateral view. IMPRESSION: 1. No acute cardiopulmonary abnormality. 2. Evidence of a high-grade small bowel obstruction that may or may not be related to an ingested foreign body in the right lower quadrant which appears to be an earring. .
--- NOTE | 2017-11-27 17:28 | General Surgery Consult Note ---
Consult date: 11/27/17 Reason for consult: abdominal pain (possible small bowel obstruction) PFS Patient Stated Medical History Dental Problems Yes: DENTURES Other HEENT Yes: WEARS GLASSES Obstructive Bowel Yes Clotting Problems Yes Medical History Updates: Anxiety. Constipation. A-fib. Breast CA. Liver mets. Depression. Chronic pain. OA Surgical History: Port-a-cath x2. TSH-BSO age 31. right Mastectomy 06/2014. Neck surgery 08/2013 Dr. Mi in [place]. Bladder suspension 2000. Normal colonoscopy 1999 Family History: Father - MA Mother - MA Brother - DM Sister - Brain cancer age 55 - Social History Smoking status: Former smoker (quit 2011) Household members: other () Medications Home Medications Medication Instructions Recorded Confirmed Type Carisoprodol [Soma] 350 mg PO Q8H PRN #0 01/17/16 11/27/17 History Inulin/Chromium Picolinate [Fiber 1 tab PO BID #0 01/17/16 11/27/17 History Gummies] ALPRAZolam [Xanax] 1 mg PO TID PRN 11/27/17 11/27/17 History Calcium Carbonate/Vitamin D3 1 each PO DAILY 11/27/17 11/27/17 History [Calcium 500-Vit D3 200 Tablet] Cyanocobalamin (B-12) [Vit. B-12] 500 mcg PO DAILY 11/27/17 11/27/17 History Docusate Sodium [Colace] 100 mg PO BID 11/27/17 11/27/17 History FLUoxetine [Prozac] 60 mg PO DAILY 11/27/17 11/27/17 History FentaNYL PATCH [Duragesic Patch] 1 patch TD Q72H 11/27/17 11/27/17 History Multivitamin [One Daily] 1 each PO DAILY 11/27/17 11/27/17 History Oxycodone HCl [Roxicodone] 15 - 30 mg PO Q4H PRN 11/27/17 11/27/17 History Peg 3350 238 G Bottle [Miralax] 1 dose PO DAILY PRN 11/27/17 11/27/17 History Potassium Chloride 20 meq PO DAILY 11/27/17 11/27/17 History Rivaroxaban [Xarelto] 20 mg PO DAILY 11/27/17 11/27/17 History Allergies Allergy/AdvReac Type Severity Reaction Status Date / Time No Known Allergies Allergy Verified 11/27/17 15:12 Review of Systems 10-point ROS: negative except for HPI and the following: - Eyes/Ears/Nose/Throat Eyes: Present: vision problems (glasses) - Cardiovascular Cardiovascular: Present: irregular heart beat - Musculoskeletal Musculoskeletal: Present: joint pain - Psychiatric Psychiatric: Present: anxiety, depression - Hematologic/Lymphatic Hematologic/Lymphatic: Present: easy bruising, use of blood thinners - Vital Signs Last Vital Signs Temp 98.9 F 11/27/17 14:05 Pulse 82 11/27/17 16:00 Resp 24 11/27/17 14:05 BP 112/57 11/27/17 16:00 Pulse Ox 96 11/27/17 16:00 - Laboratory Result Diagrams: 11/27/17 14:51 11/27/17 14:51 - Microbiogy Microbiology 11/27/17 14:55 Peripheral/Iv Start Blood Culture - Preliminary Culture Initiated - Results Pending 11/27/17 14:58 Peripheral/Iv Start Blood Culture - Preliminary Culture Initiated - Results Pending General Surgery Results - Results Labs: 11/27/17 14:51 11/27/17 14:51 Microbiology: Microbiology 11/27/17 14:55 Peripheral/Iv Start Blood Culture - Preliminary Culture Initiated - Results Pending 11/27/17 14:58 Peripheral/Iv Start Blood Culture - Preliminary Culture Initiated - Results Pending Hospital Course Summary Disclaimer: The visit summary below is not to be considered part of the above Progress Note.
[2017-11-27] MEDS ORDERED: IOHEXOL 300mg/ml 75ml INJECTION ONE (18:15)
[2017-11-27] MEDS ORDERED: NS 100 ML ONE (18:15)
[2017-11-27] MEDS ORDERED: SALINE FLUSH 10ml SYRINGE ONE (18:15)
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
[2017-11-27] MEDS: PANTOPRAZOLE 40 MG INJECTION IVP SCH (19:56)
[2017-11-27] MEDS: NS 1,000 ML IV SCH (19:57)
--- NOTE | 2017-11-27 20:18 | Consultation ---
DATE OF CONSULTATION 11/27/2017 FINDINGS Mrs. Mg is a 57-year-old female whom I was asked to see through the emergency room today as a result of her history and physical findings of abdominal pain in conjunction with an abnormal x-ray revealing evidence for a small bowel obstruction. Patient is actually known to my surgical practice and I have seen the patient in the past as a result of a prior small bowel obstruction. Patient states that she has been doing quite well from a bowel standpoint until earlier this week on Thursday. Patient informs me that on Thursday she began to experience a component of abdominal discomfort. States this discomfort was more so within her left lower quadrant. Patient described the pain as being somewhat "crampy in nature." Patient states on Thursday evening she began to have a fair amount of nausea and vomiting throughout the entire evening. The patient did share with me that she has had the misfortune of having recurrent metastatic breast cancer. She states that there is a "spot that has gone into her belly." She does see Dr. Ricks in [place], [place]. The patient did inform me that she is on Perjeta and Herceptin. Patient states that after Thursday evening she continued to have nausea and vomiting on Thursday and . This nausea and vomiting again occurred mostly in the evening time. She states that she has been limiting her intake. She states that she has not had a bowel movement since Thursday. The patient was quite tearful upon entering the ER bay during the interview process. PAST MEDICAL HISTORY, PAST SURGICAL HISTORY, MEDICATIONS, ALLERGIES, SOCIAL HISTORY, FAMILY HISTORY, REVIEW OF SYSTEMS Performed by my nurse practitioner, Nehemias Buck APRN. PHYSICAL EXAMINATION GENERAL: Mrs. Mg is a 57-year-old female who did appear to be in some distress. As stated above, she was quite tearful and "sobbing" during the interview process. VITAL SIGNS: Temperature 98.9, pulse 82, blood pressure 107/66, SAO2 96% on 2 L /nasal cannula. HEENT: Normocephalic. Pupils are equally round and react to light and accommodation. CHEST: Clear to auscultation bilaterally. HEART: Regular rate and rhythm. Normal S1 and S2 without gallops, murmurs or clicks. ABDOMEN: Visualization of the abdomen did not reveal it to be significantly distended in its overall appearance. The patient does have a prior midline incision consistent with her prior surgical history. Palpation of the abdomen reveals it to be soft without evidence for severe tenderness. There was no evidence for guarding or rebound tenderness. With firm palpation within the lower abdomen patient did have some mild discomfort. EXTREMITIES: Without clubbing, cyanosis, or edema. NEURO: Cranial nerves II-XII grossly intact. Patient is without focal motor or sensory deficits. LABORATORY/RADIOGRAPHIC EVALUATION Patient had a CBC upon admission and her white count was 7.7. Hemoglobin was 11.6. Platelet count was normal at 302,000. CMP was obtained and her chloride was slightly low at 96. BUN was slightly elevated at 23.0. Alkaline phosphatase was slightly elevated at 135. Lipase was normal at 46. Radiographically, the patient had a chest x-ray and abdominal series obtained. There was no acute cardiopulmonary abnormality. Abdominal film did reveal evidence for high-grade small-bowel obstruction with an ingested foreign body present within the right lower quadrant. This did appear to be consistent with an earring. ASSESSMENT 57-year-old female with known recurrent metastatic breast cancer who presents with radiographic evidence for small bowel obstruction. Patient without an acute surgical abdomen at this time. PLAN I did review electronic medical record and discovered that in December 2015 the patient had gone exploratory laparotomy at that time resulting in a small bowel obstruction. She was found to have dense adhesions within her lower abdomen from a prior hysterectomy. At that time there was an adhesive band resulting in a small bowel obstruction of the terminal ileum and mid jejunum. At this time I recommend that we place the patient in the hospital. I did recommend that we go ahead and proceed with placement of an NG tube although the patient began to cry significantly and stated that she did not think that she could tolerate this. For now will hold off on placing NG and will place NG if she would have recurrent nausea and vomiting. Will go ahead and obtain a CT scan of her abdomen and pelvis for better delineation of her small bowel obstruction. Will rule out that she does not have intraabdominal mass as a result of her known history for recurrent metastatic breast cancer. Will repeat KUB and upright in the morning. Will repeat lab work tomorrow. Likely tomorrow will proceed with Gastrografin small bowel follow-through for further evaluation to rule in or rule out a complete small bowel obstruction. At the present time, as stated above, the patient does not have an acute surgical abdomen. She is not significantly tender upon palpation. She not have tachycardia nor significant leukocytosis. MTDD
[2017-11-27] MEDS: HYDROMORPHONE 2 MG/ML INJECTION IVP PRN (20:25)
[2017-11-28] MEDS: HYDROMORPHONE 2 MG/ML INJECTION IVP PRN ×5 (00:39→22:44)
[2017-11-28] MEDS: SORE THROAT SPRAY 20ml PO PRN ×3 (02:00→08:39)
[2017-11-28] MEDS: NS 1,000 ML IV SCH ×2 (07:42→18:17)
[2017-11-28] MEDS ORDERED: DIATRIZOATE MEGLUMINE/SOD. (66%/10%) 120ml SOLN ONE (11:05)
[2017-11-28] MEDS: PANTOPRAZOLE 40 MG INJECTION IVP SCH (11:17)
--- NOTE | 2017-11-28 11:29 | Progress Note ---
- Date 11/28/17 Subjective: 57 yo female presented with 4 day h/o nausea, vomiting and abdominal pain. Last BM was 11/22/17. She has a h/o SBO with surgery by Dr. Ribeiro 2 years ago. She has breast CA with mets to the liver and lymph nodes. Sees Dr Nicole in [place] for chemo. She takes oxycodone 15mg q 4-6 hrs and is on a fentanyl patch. She states she uses these pain meds for pain which she has "all over" due to arthritis and from previous surgery in her neck. She also uses Soma for muscle spasms in her legs. Work up in ER includes xray showing high grade small bowel obstruction which may or may not be related to an ingested foreign body in the RLQ which appears to be an earring but felt to be likely adhesions. No significant findings on labs. Dr. Ribeiro has been consulted. Today she does indeed have NG tube in place. She denies any nausea or vomiting this morning. She states she is passing flatus but has not had a bowel movement. She denies any abdominal pain at present. She denies lightheadedness dizziness. She denies chest discomfort or palpitations. She denies shortness of breath or decision exertion. She does not like the NG tube and states that bothers her eyesight. She is getting up to the bathroom without difficulty. Objective Vital signs: Temperature 98.1 F 11/28/17 09:00 Pulse Rate 74 11/28/17 09:00 Respiratory Rate 20 11/28/17 09:00 Blood Pressure 109/64 11/28/17 09:00 Pulse Oximetry 91 11/28/17 09:00 Height/Weight/BMI: Height 1.75 m Weight 62.2 kg Body Mass Index 20.0 Comments: Gen: alert and oriented. NAD Skin: warm and dry HEENT: NC/AT PERRL, EOMI, Sclera, lids and conjunctiva wnl. MMM. OP clear. NGT in place. Neck: No JVD, Carotids 2+ without bruits Lungs: clear but diminished. No rales, rhonchi or wheezes CV: regular. No murmur, rub or gallop Abd: soft. +hypoactive BS. NT/ND MS: No edema. Good strength and ROM Neuro: No focal deficits Results - Labs CBC & Chem 7: 11/28/17 04:54 11/28/17 04:54 Assessment and Plan (1) SBO (small bowel obstruction) Current visit: Yes Status: Acute Assessment and Plan: Assessment Nausea, vomiting and abdominal pain secondary to small bowel obstruction vs ileus Foreign body in colon H/o DVT in R jugular following port-a-cath insertion in 2013 - On Xarelto Anxiety/depression Constipation Breast CA with liver mets Chronic pain OA Plan Admit to OBS for further w-u to include CT scan of abd/pelvis, NG tube if needed , and pt to be kept NPO. Dr. Daley attending. Consult Dr. Ribeiro Given 1L NS in ER, will continue at 100cc/hr. Pain management w/ PRN dilaudid. Currently on fentanyl patch and oxycodone 15 q4-6hrs chronically. Zofran for nausea, IV PPI SCD's for VTE prophylaxis. Hold Xarelto/defer enoxaparin given NPO status and possible surgical intervention. Pt requests Full Code status Care to return to Dr. Ricks and Darleen Hooper APRN on dismissal. - Physician Narrative Physician: Corin Stringer MD Narrative: Date: 11/28/17 Time: 1125 Assessment and Plan. 1. Nausea, vomiting and abdominal pain secondary to small bowel obstruction -Dr. Ribeiro consulted. -NGT -Advance diet per Dr. Ribeiro recommendations. -Pain management, Zofran for nausea -Foreign body in colon 2. H/o DVT in R jugular following port-a-cath insertion in 2013 -On Xarelto-on hold. 3. Anxiety/depression 4. Breast CA with liver mets -Dr. Maxime Ricks is her oncologist. 5. Chronic pain 6. Prophylaxis -SCDs, ambulate frequently -PPI Hospital Course Summary Disclaimer: The visit summary below is not to be considered part of the above Progress Note. Hospital Course: Assessment Nausea, vomiting and abdominal pain secondary to small bowel obstruction vs ileus Foreign body in colon H/o DVT in R jugular following port-a-cath insertion in 2013 - On Xarelto Anxiety/depression Constipation Breast CA with liver mets Chronic pain OA 11/27/16 - Hospital admission Admit to OBS for further w-u to include CT scan of abd/pelvis, NG tube if needed , and pt to be kept NPO. Dr. Daley attending. Consult Dr. Ribeiro Given 1L NS in ER, will continue at 100cc/hr given her NPO status and vomiting Pain management w/ PRN dilaudid. Currently on fentanyl patch and oxycodone 15 q4-6hrs chronically. Zofran for nausea, IV PPI SCD's for VTE prophylaxis. Hold Xarelto/defer enoxaparin given NPO status and possible surgical intervention. Pt requests Full Code status Care to return to Dr. Nicole and Darleen Hooper, MEAL COOKER on dismissal.
[2017-11-28] MEDS: ONDANSETRON 4 MG/2 ML INJECTION IVP PRN ×2 (13:37→22:35)
--- NOTE | 2017-11-28 15:24 | Progress Note ---
DATE OF SERVICE 11/28/2017 FINDINGS Mrs. Mg this morning was without complaints. She did allow the nursing staff to place NG last evening. She denies any element of abdominal pain this morning. Her primary complaint is that of her NG tube. EXAM VITAL SIGNS: Temperature 98.1, pulse 74, respirations 20, blood pressure 109/64 , SAO2 91% on 3 L/nasal cannula. HEENT: Normocephalic. Pupils are equally round and react to light and accommodation. CHEST: Clear to auscultation bilaterally. HEART: Regular rate and rhythm. Normal S1 and S2 without gallops, murmurs or clicks. ABDOMEN: Visualization of the abdomen does reveal it to be more scaphoid in its appearance this morning. Palpation of the abdomen reveals it to be soft and completely nontender throughout. There is no evidence for guarding or rebound. LABORATORY/RADIOGRAPHIC EVALUATION The patient had a CBC today and her white count remains stable at 5.7. Hemoglobin is 10.1. BMP obtained and found be without marked electrolyte abnormalities. Radiographically, a KUB and upright and a chest x-ray were obtained today. I do feel that her radiographic appearance is improved in comparison to yesterday. NG does appear to be at the end of the esophagus and not completely into the stomach. One may wish to advance the NG tube. There does appear to be less small bowel dilatation. I have reviewed CT scan from last evening. Teleradiology report returned revealing evidence for small bowel obstruction without evidence for perforation. The patient was again described as having a metallic focus within the colonic lumen. ASSESSMENT 57-year-old female with known metastatic breast cancer who presents with a small bowel obstruction appearance upon radiograph evaluation. Patient is without an acute surgical abdomen. The patient is on chronic anticoagulation. Last dose of Xarelto was . PLAN At this point in time, as stated above, the patient does not have increasing leukocytosis. She does not have tachycardia. She is nontender upon palpation. Therefore, I feel that we are not dealing with an acute surgical emergency. At this point in time I would recommend that we go ahead and proceed by obtaining a Gastrografin small bowel follow-through. Hopefully, the contrast will progress through her small bowel and into her colon. If over the next 24 hours the contrast does not progress through her upper GI tract or if she would begin develop increasing pain/discomfort will then proceed with surgical intervention. Would prefer to delay surgery another 24 hours given her dose Xarelto on . MTDD
[2017-11-28] MEDS: METOCLOPRAMIDE 10mg/2ml INJECTION IVP PRN (19:08)
[2017-11-29] MEDS: METOCLOPRAMIDE 10mg/2ml INJECTION IVP PRN (01:37)
[2017-11-29] MEDS: NS 1,000 ML IV SCH ×2 (05:02→15:00)
[2017-11-29] MEDS: HYDROMORPHONE 2 MG/ML INJECTION IVP PRN (05:03)
[2017-11-29] MEDS: ONDANSETRON 4 MG/2 ML INJECTION IVP PRN (05:30)
--- NOTE | 2017-11-29 08:26 | XRay Report ---
Indication: possible complete small bowel obstruction PROCEDURE: XR small bowel follow through: Encounter: Initial Comparison: CT abdomen dated November 27, 2017 Findings: January double contrast was administered orally followed by serial abdominal radiographs. There is a nasogastric tube in place within the distal esophagus. The tip is just above the GE junction. Consider advancement. There is quite slow motility of contrast into the small bowel taking approximately four hours to exit the stomach. At the six hour roberth there is contrast within dilated loops of proximal to mid small bowel. These measure up to 5.6 cm in diameter. At eight hours after administration contrast is still confined to the dilated small bowel with no evidence of colonic contrast. Over the course of the exam the radiopaque foreign body in the right abdomen does not move significantly. Impression: No colonic contrast by 8 h after administration suggesting a complete small bowel obstruction. There is a preliminary report by [facility]. .
[2017-11-29] MEDS: PANTOPRAZOLE 40 MG INJECTION IVP SCH (08:30)
--- NOTE | 2017-11-29 09:17 | Progress Note ---
- Date 11/29/17 Subjective: 57 yo female presented with 4 day h/o nausea, vomiting and abdominal pain. Last BM was 11/22/17. She has a h/o SBO with surgery by Dr. Ribeiro 2 years ago. She has breast CA with mets to the liver and lymph nodes. Sees Dr Nicole in [place] for chemo. She takes oxycodone 15mg q 4-6 hrs and is on a fentanyl patch. She states she uses these pain meds for pain which she has "all over" due to arthritis and from previous surgery in her neck. She also uses Soma for muscle spasms in her legs. Work up in ER includes xray showing high grade small bowel obstruction which may or may not be related to an ingested foreign body in the RLQ which appears to be an earring but felt to be likely adhesions. No significant findings on labs. Dr. Ribeiro has been consulted. Dr. Ribeiro saw the pt yesterday and ordered a gastrografin small bowel follow through which was done. He does not feel she is at the point of needing surgery at this time. If the gastrografin does not go through to her colon over the next 24 hours then the plan is proceed with surgical intervention. She had a dose of Xarelto on . So waiting 5 days from that dose would certainly be ideal. The abdominal x-ray today does not show any evidence of gastrografin in the colon, continuing to suggest complete small bowel obstruction. This morning, she just does not feel well. She denies any abdominal pain however. She denies any nausea. NG tube is still in place and she has had 1200 out. She states she's passing gas but still has not had a bowel movement. She reports hurting all over including her neck, back, legs. With palpation she is slightly tender in her entire abdomen but there is no rebound regarding. There are a few bowel sounds heard. She has not been up to the bathroom yet but was getting up on her own yesterday. She denies feeling short of breath. Objective Vital signs: Temperature 97.2 F 11/29/17 07:46 Pulse Rate 95 11/29/17 07:46 Respiratory Rate 16 11/29/17 07:46 Blood Pressure 132/65 11/29/17 07:46 Pulse Oximetry 91 11/29/17 07:46 Height/Weight/BMI: Height 1.75 m Weight 62.5 kg Body Mass Index 20.0 Comments: Gen: alert and oriented. Appears chronically ill. She's not in any acute distress. Skin: warm and dry HEENT: NC/AT PERRL, EOMI, Sclera, lids and conjunctiva wnl. NG tube in nasopharynx Neck: No JVD, Carotids 2+ without bruits Lungs: diminished but clear. No rales, rhonchi or wheezes CV: regular. No murmur, rub or gallop Abd: soft. + Minimal BS. Slight tended to palpation diffusely MS: No edema. Good strength and ROM Neuro: No focal deficits Reported by nsg showed NGT output to be "fecal matter" and "bile" Results - Labs CBC & Chem 7: 11/29/17 04:59 11/29/17 04:59 Assessment and Plan (1) SBO (small bowel obstruction) Current visit: Yes Status: Acute Assessment and Plan: Assessment and Plan: 1. Nausea, vomiting and abdominal pain secondary to small bowel obstruction -Dr. Ribeiro consulted. -NGT with 1200 out since yesterday. (Reported by nsg showed NGT output to be "fecal matter" and "bile") -Gastrografin done yesterday, XRAY today still does not show any gastrografin in the colon. -Pain management, Zofran for nausea -Foreign body in colon -Still no BM, pt report flatus 2. H/o DVT in R jugular following port-a-cath insertion in 2013 -On Xarelto-on hold. 3. Anxiety/depression 4. Breast CA with liver mets -Dr. Maxime Ricks is her oncologist. 5. Lymphopenia with 94% neutrophils -WBC up 5.6-->9.7 today 6. Anemia -Stable 7. Chronic pain -On multiple pain meds 8. Prophylaxis -SCDs, ambulate frequently -PPI Still no Gastrografin in the: on today's exam I suspect she will need to proceed with surgical intervention. Will await Dr. Ribeiro's recommendations. DVT Prophylaxis: SCD's GI Prophylaxis: Protonix Resuscitation Status: Full Code - Time spent with patient Time with patient PN: 15 minutes - Physician Narrative Physician: Corin Stringer MD Narrative: Date: 11/29/17 Time: 912 Hospital Course Summary Disclaimer: The visit summary below is not to be considered part of the above Progress Note. Hospital Course: Assessment Nausea, vomiting and abdominal pain secondary to small bowel obstruction vs ileus Foreign body in colon H/o DVT in R jugular following port-a-cath insertion in 2013 - On Xarelto Anxiety/depression Constipation Breast CA with liver mets Chronic pain OA 11/27/16 - Hospital admission Admit to OBS for further w-u to include CT scan of abd/pelvis, NG tube if needed , and pt to be kept NPO. Dr. Daley attending. Consult Dr. Ribeiro Given 1L NS in ER, will continue at 100cc/hr given her NPO status and vomiting Pain management w/ PRN dilaudid. Currently on fentanyl patch and oxycodone 15 q4-6hrs chronically. Zofran for nausea, IV PPI SCD's for VTE prophylaxis. Hold Xarelto/defer enoxaparin given NPO status and possible surgical intervention. Pt requests Full Code status Care to return to Dr. Nicole and Darleen Hooper, [place] on dismissal.
--- NOTE | 2017-11-29 09:39 | CT Scan Report ---
Indication: small bowel obstruction, hx for metastatic breast cancer PROCEDURE: CT abdomen pelvis w con: Encounter: Initial Comparison: Abdominal x-ray from the same date and CT abdomen/pelvis dated January 17, 2016 Technique: Axial CT images were performed through the abdomen and pelvis after the administration of intravenous contrast. Coronal and sagittal two-dimensional reformats. Automated Exposure Control and Iterative Reconstruction dose reducing techniques were utilized. Contrast: Omnipaque 300 75 mL Findings: Groundglass opacity in the right lower lobe. The liver is grossly normal. Gallbladder is distended. The spleen, pancreas and adrenal glands are within normal limits. Right kidney is normal. Small fat-containing lesion in the lower pole of the left kidney measuring 1.7 cm in size possibly an angiomyolipoma. No abdominal or pelvic lymphadenopathy. Stomach is fluid-filled and distended as is the majority of the small bowel measuring up to 4 cm in the midabdomen. No significant free fluid. No free air. The colon is relatively decompressed. The metallic foreign body seen radiographically is within the ascending colon. There are decompressed loops of distal small bowel seen in the right pelvis. There is a transition point with fecalized small bowel in the left lower abdomen best seen on axial image #48 at the level of the aortic bifurcation. No mesenteric or portal venous gas appreciated. Bone windows show degenerative change and scoliosis in the spine. Impression: 1. Acute complete small bowel obstruction with transition in the left lower abdomen possibly due to an adhesion. 2. Metallic foreign body in the ascending colon. 3. Left renal angiomyolipoma There is a preliminary report by [facility]. .
--- NOTE | 2017-11-29 09:43 | XRay Report ---
Indication: small bowel obstruction PROCEDURE: XR abdomen 2V: Encounter: Initial Comparison: Small bowel follow-through from yesterday Findings: Mild atelectasis in the lung bases. Stomach remains distended. Dilated contrast opacified small bowel loops are seen. Contrast material in the bladder. Metallic foreign body remains projecting over the right pelvis. Nasogastric tube may have retracted or been removed. No definite colonic contrast seen. Impression: Still no definitive evidence of contrast material within the colon consistent with a complete small bowel obstruction. .
--- NOTE | 2017-11-29 09:45 | XRay Report ---
Indication: small bowel obstruction PROCEDURE: PA view of the chest with supine and upright AP views of the abdomen Encounter: Initial Comparison: CT abdomen and pelvis from the same date along with small bowel follow-through FINDINGS: Nasogastric tube in place with the tip terminating in the distal esophagus just above the GE junction. Left subclavian port catheter. Mild left basilar atelectasis. No pneumothorax or effusion. Heart size and mediastinal contours are within normal limits. Pulmonary vascularity is normal. No free air. There are dilated small bowel loops with differential air-fluid levels present. Metallic foreign body right pelvis again seen. Contrast material in the bladder. Degenerative change and scoliosis in the spine. Minimal colonic gas seen. Impression: 1. Nasogastric tube tip above the GE junction. Recommend advancement. 2. Continued findings of a small bowel obstruction. There is a preliminary report by [facility]. .
--- NOTE | 2017-11-29 10:56 | Progress Note ---
DATE: 11/29/2017 FINDINGS Mrs. Mg, this morning, states that she is still experiencing a component of abdominal discomfort. She is requesting to "eat something". VITALS: Temperature 97.2, pulse 95, respirations 16, blood pressure 132/65, SAO2 91% on 3-1/2 liters per nasal cannula. HEENT: Normocephalic. Pupils are equally round and react to light and accommodation. NECK: Supple without lymphadenopathy. CHEST: Clear to auscultation bilaterally. HEART: Regular rate and rhythm. Normal S1 and S2 without gallops, murmurs or clicks. ABDOMEN: Visualization of the abdomen does not reveal it to be significantly distended. Palpation of the abdomen reveals some minimal tenderness within the suprapubic region. There is no evidence for guarding or rebound. LABORATORY/RADIOGRAPHIC EVALUATION The patient's white count has slightly increased to 9.7. Hemoglobin is stable at 10.8. She does have a left shift now with 94% neutrophils. BMP obtained and found to be overall stable. BUN slightly elevated at 28.0. Radiographically, the patient did have a small bowel series yesterday as well as a follow-up KUB today. Unfortunately the contrast never did progress through her small bowel and into her colon indicative of a complete small bowel obstruction. ASSESSMENT 57-year-old female with probable complete small bowel obstruction. PLAN Exploratory laparotomy. I informed the patient that unfortunately the gastrografin that was placed within her stomach has never progressed through her GI tract and therefore findings are consistent with that of a complete small bowel obstruction. It was therefore my recommendation that today we would proceed with surgical intervention/exploratory laparotomy, lysis of adhesions. I did discuss with the patient what this procedure would entail and its associated risks which included but was not inclusive of bleeding, infection , potential for creation of a ostomy although this would be highly unlikely. The patient understood and wished to proceed. CINDY
--- NOTE | 2017-11-29 11:43 | Anesthesia Preoperative Report ---
Anesthesia Preoperative Record - Date and Time Date: 11/29/17 Preoperative Diagnosis: SBO,abdominal pain Proposed Procedure: diag lap NPO Since Date: 11/28/17 NPO Since Time: 23:00 Allergies/Adverse Reactions: Allergies Allergy/AdvReac Type Severity Reaction Status Date / Time No Known Allergies Allergy Verified 11/27/17 15:12 - Vital Signs Vital Signs: Temperature 97.2 F 11/29/17 07:46 Pulse Rate 95 11/29/17 07:46 Respiratory Rate 16 11/29/17 07:46 Blood Pressure 132/65 11/29/17 07:46 Pulse Oximetry 91 11/29/17 07:46 Height and Weight: Height 1.75 m Weight 62.5 kg Body Mass Index 20.0 - Medications Inpatient Medications: Current Medications Fentanyl (Duragesic Patch) 75 mcg TD Q72H YULIET Last Admin: 11/27/17 19:46 Dose: Not Given Fentanyl Citrate (Duragesic Patch Removal) 1 removal TD Q3D [facility] Hydromorphone HCl (Dilaudid) 1 - 2 mg IVP Q3H PRN PRN Reason: Pain Last Admin: 11/29/17 05:03 Dose: 2 mg Sodium Chloride (Normal Saline) 1,000 mls @ 100 mls/hr IV .Q10H YULIET Last Admin: 11/29/17 05:02 Dose: 100 mls/hr Lorazepam (Ativan Inj) 0.5 mg IVP Q4H PRN Last Admin: 11/29/17 05:36 Dose: 0.5 mg Metoclopramide HCl (Reglan) 10 mg IVP Q6H PRN Last Admin: 11/29/17 01:37 Dose: 10 mg Ondansetron HCl (Zofran) 4 mg IVP Q6H PRN PRN Reason: Nausea &/or vomiting Last Admin: 11/29/17 05:30 Dose: 4 mg Pantoprazole Sodium (Protonix Iv) 40 mg IVP DAILY YULIET Last Admin: 11/29/17 08:30 Dose: 40 mg Throat Lozenges (Chloraseptic [place]) 3 spray PO Q2H PRN Last Admin: 11/28/17 08:39 Dose: 3 spray Home Medications: Home Medications Medication Instructions Recorded Confirmed Type Carisoprodol [Soma] 350 mg PO Q8H PRN #0 01/17/16 11/27/17 History Inulin/Chromium Picolinate [Fiber 1 tab PO BID #0 01/17/16 11/27/17 History Gummies] ALPRAZolam [Xanax] 1 mg PO TID PRN 11/27/17 11/27/17 History Calcium Carbonate/Vitamin D3 1 each PO DAILY 11/27/17 11/27/17 History [Calcium 500-Vit D3 200 Tablet] Cyanocobalamin (B-12) [Vit. B-12] 500 mcg PO DAILY 11/27/17 11/27/17 History Docusate Sodium [Colace] 100 mg PO BID 11/27/17 11/27/17 History FLUoxetine [Prozac] 60 mg PO DAILY 11/27/17 11/27/17 History FentaNYL PATCH [Duragesic Patch] 1 patch TD Q72H 11/27/17 11/27/17 History Multivitamin [One Daily] 1 each PO DAILY 11/27/17 11/27/17 History Oxycodone HCl [Roxicodone] 15 - 30 mg PO Q4H PRN 11/27/17 11/27/17 History Peg 3350 238 G Bottle [Miralax] 1 dose PO DAILY PRN 11/27/17 11/27/17 History Potassium Chloride 20 meq PO DAILY 11/27/17 11/27/17 History Rivaroxaban [Xarelto] 20 mg PO DAILY 11/27/17 11/27/17 History - Medical History Respiratory: Reports: Pneumonia DENIES: Sleep Apnea Gastrointestional: Reports: Obstructive Bowel, Nausea or Vomiting Present Neuro/Musculoskeletal: Reports: Back Problems, Depression Other History: Reports: Cancer (BREAST W/ METASTASIS TO R KIDNEY AREA), Other ( dvt right jugular ) - Surgical History GI Surgery/Treatments: Reports: Colonoscopy, Other (PARTIAL BOWEL RESECTION) Reproductive Surgery/Treatment: Reports: Hysterectomy, Mastectomy (RIGHT) Anesthesia Reactions: None Hx Family Anesthesia Reaction: No - Social History Smoking Status: Current some day smoker (smokes up to a pack per week) Pack-years: 22 Substance Use Type: does not use Alcohol Intake Frequency: does not drink - Pertinent Findings Laboratory: CBC and BMP 11/29/17 04:59 11/29/17 04:59 BMP 11/29/17 04:59 Sodium 144 Potassium 4.0 Chloride 103 Carbon Dioxide 28 BUN 28.0 H Creatinine 0.6 L D Glucose 102 Calcium 9.2 - Physical Exam Respiratory Exam: Present: lungs clear, bilateral breath sounds equal Cardiovascular Exam: Present: regular rate and rhythm, no murmur - Airway Assessment Mallampati Score: I TMD: 3 Fingerbreadths Neck Extension: good Teeth: upper dentures, lower dentures - ASA ASA Score: 3 - Plan Anesthesia: General Inhalation Gases - Discussion Discussion: Discussed risks/options/alternatives of anesthesia and questions answered. Patient consents. Nursing pain assessment noted. Attestation Statement: Prior to the delivery of any anesthetic medication, I examined the patient, developed the plan, obtained the patient's consent and discussed the risk and benefits of the procedure with the patient/guardian. - Additional Information Seen by Anesthesia: Yes
[2017-11-29] MEDS ORDERED: SCOPOLAMINE 1mg/3 days PATCH TD SCH (12:00)
[2017-11-29] MEDS ORDERED: ERTAPENEM 1 G in NS 100 ML IV SCH (12:25)
[2017-11-29] MEDS: LR 1,000 ML IV SCH ×2 (12:40→13:45)
[2017-11-29] MEDS ORDERED: FentaNYL 100 MCG/2 ML INJECTION IVP PRN (13:30)
--- NOTE | 2017-11-29 14:46 | General Surgery Procedure Note ---
Date of Procedure: 11/29/17 Surgeon: Quintin [employer] Worker: Nehemias Buck APRN Postoperative Diagnosis: Adhesions, small bowel obstruction Procedure: Exploratory laparotomy with extensive adhesiolysis, small partial small bowel resection. Estimated Blood Loss: See Anesthesia Record.
[2017-11-29] MEDS ORDERED: NS 1,000 ML IV SCH (15:27)
[2017-11-29] MEDS ORDERED: HYDROCODONE/APAP 5mg/325mg TABLET PO PRN (15:27)
[2017-11-29] MEDS: MORPHINE PCA 30 MG/30 ML SYRINGE IV PRN (16:03)
[2017-11-29] MEDS: FAMOTIDINE PB 20 MG/50 ML BAG IV SCH (18:08)
[2017-11-29] MEDS: D5-1/2NS with KCL 20mEq 1,000 ML IV SCH (19:39)
[2017-11-29] MEDS: KETOROLAC 30 MG/ML INJECTION IVP PRN (20:06)
[2017-11-30] MEDS: MORPHINE PCA 30 MG/30 ML SYRINGE IV PRN ×2 (04:12→14:32)
[2017-11-30] MEDS: D5-1/2NS with KCL 20mEq 1,000 ML IV SCH ×5 (04:56→15:37)
[2017-11-30] MEDS: FAMOTIDINE PB 20 MG/50 ML BAG IV SCH ×2 (05:55→17:59)
[2017-11-30] MEDS: ENOXAPARIN 40 MG/0.4 ML INJECTION SQ SCH (08:19)
--- NOTE | 2017-11-30 08:39 | General Surgery Progress Note ---
Subjective Patient reports: flatus (states she has had a small amount of flatus, although bowel sounds are very rare), no bowel movement Narrative: Using Morphine FORGE HEATER frequently in addition to her Fentanyl patch which she has been on at home for "cancer pain". Denies nausea. NG remains in place. - Vital Signs Last Vital Signs Temp 98.5 F 11/29/17 23:15 Pulse 89 11/30/17 04:45 Resp 18 11/30/17 06:55 BP 117/59 11/30/17 04:45 Pulse Ox 95 11/30/17 04:45 - Laboratory Result Diagrams: 11/30/17 04:14 11/30/17 04:14 - Abnormal Exam Abdominal: hypoactive bowel sounds (very rare), other (NG in place, brown output 250 ml since midnight) - Normal Exam General: alert, oriented, resting, awakens easily Cardiovascular: regular rhythm, regular rate Respiratory: clear bilaterally (but diminished), no labored breathing (O2 1LNC with sats 91%) Abdominal: soft, appropriately tender, incision(s) (CDI, no erythema, ecchymosis , jaime in tact.) Female: other (urine medium/light yellow about 25-45 ml/hr in the last 3-4 hours.) Psychiatric: normal affect Assessment and Plan (1) Metastatic breast cancer Current Visit: Yes Status: Acute (2) SBO (small bowel obstruction) Current Visit: Yes Status: Acute Plan: POD #1 VSS Progressing as expected, pain control adequate with Fentanyl patch and low dose morphine FORGE HEATER and Toradol. Urine output marginal but adequate. Incision looks good. Once there is more confirmation of bowel activity will increase diet and DC NG. Keep [place] for today, may DC tomorrow if output is adequate and consistent. Daily labs. Continue current care. Hospital Course Summary Disclaimer: The visit summary below is not to be considered part of the above Progress Note. Hospital Course: Assessment Nausea, vomiting and abdominal pain secondary to small bowel obstruction vs ileus Foreign body in colon H/o DVT in R jugular following port-a-cath insertion in 2013 - On Xarelto Anxiety/depression Constipation Breast CA with liver mets Chronic pain OA 11/27/16 - Hospital admission Admit to OBS for further w-u to include CT scan of abd/pelvis, NG tube if needed , and pt to be kept NPO. Dr. Daley attending. Consult Dr. Ribeiro Given 1L NS in ER, will continue at 100cc/hr given her NPO status and vomiting Pain management w/ PRN dilaudid. Currently on fentanyl patch and oxycodone 15 q4-6hrs chronically. Zofran for nausea, IV PPI SCD's for VTE prophylaxis. Hold Xarelto/defer enoxaparin given NPO status and possible surgical intervention. Pt requests Full Code status Care to return to Dr. Nicole and Darleen Hooper, [place] on dismissal.
--- NOTE | 2017-11-30 10:00 | Operative Note ---
DATE OF SERVICE 11/29/2016 SURGEON Kurt Ribeiro MD ATOMIC SPECTROSCOPIST Nehemias Buck APRN PREOPERATIVE DIAGNOSIS Small bowel obstruction. POSTOPERATIVE DIAGNOSIS Small bowel obstruction secondary to extensive intraabdominal adhesions. PROCEDURE Exploratory laparotomy, extensive adhesiolysis, small bowel resection. ANESTHESIA General endotracheal. EBL AND FLUIDS Please see chart. BRIEF HISTORY/INDICATIONS Mrs. Mg is a 57-year-old female who has had the misfortune of developing recurrent metastatic breast cancer as well as, over the course of the last several days, a recurrent small bowel obstruction. I have actually operated on the patient in the past, in December 2015, as the result of a small bowel obstruction secondary to adhesions at that time. The patient was recently admitted to our facility with the suspicion of a recurrent small bowel obstruction. Attempts were made to manage her conservatively with NG suction and IV fluids. Gastrografin small bowel follow-through was obtained and, unfortunately, did not progress into her colon and findings were consistent with that of small bowel obstruction. The patient did have a slightly increasing leukocytosis and left shift. As a result of the above indications, it was recommended to the patient that she undergo surgical intervention. For completeness please refer to notes included in the patient's chart. FINDINGS Upon abdominal exploration the patient was found to have extensive adhesions once again, mostly within the pelvis. Multiple loops of bowel were adherent to one another as well as adherent to the anterior abdominal wall. One could see a transition zone within the proximal ileum region. Proximal to an adhesive band there was significant dilation of the small bowel. Distally, the small bowel was collapsed. During the process of performing adhesiolysis, two enterotomies occurred. These enterotomies were repaired but upon further inspecting the repair of these enterotomies one could see some extravasation of small bowel contents through the repair. Therefore elected to go ahead and proceed with a limited small bowel resection of this portion of small bowel. These enterotomies would be considered to be inherent to the risk of the procedure given the dense adhesions that were present. Liver edge contained some lobulations, but there was no evidence for discrete suspicious nodularities upon Macie's capsule. Palpation of the colon could reveal the previously noted earring within the mid ascending colon region. I elected not to try to remove this foreign body. Remaining colon was without palpable abnormalities. Stomach was without palpable abnormalities. DESCRIPTION OF PROCEDURE After informed consent was obtained, the patient was brought to the operative suite and placed on the table in supine fashion. The abdomen was then prepped and draped in sterile fashion. Formal time-out was then completed. A standard midline incision was then made from just above the umbilicus down to the suprapubic region along her prior surgical incision. Dissection was carried down through deep subcuticular tissues. The fascia was then began to be opened with cautery. Two Melani clamps were then placed upon the fascia near the umbilicus and retracted anteriorly. Fascia was then opened at this location. Fascia was then able to be opened in a cephalad fashion without difficulty. Caudally, however, towards the suprapubic region the patient was found to have dense adhesions between the small bowel and the peritoneal surfaces. These adhesions were taken down under direct visualization with sharp dissection/ Metzenbaum scissors. One could see there was significant dilatation of the small bowel in the upper abdomen. Distally, one could see a normal-appearing small bowel that was densely adherent to itself. The abdominal cavity was explored. Findings were as noted above. First, attention was direct towards the adhesions within the pelvic region. It was difficult to see where the transition zone was for there were dense adhesions present and one could not visualize this area. Perhaps the next hour was spent performing adhesiolysis between multiple loops of small bowel, between loops of small bowel and the anterior abdominal wall as well as between loops of small bowel and the lateral pelvic rushing. Eventually the small bowel was able to be delivered up from the pelvis and beneath this dense area of adhesions one identified an adhesive band that looped up and over a portion of proximal ileum. Small bowel proximal to this was significantly dilated. Small bowel distal to this was of a normal caliber. During the process of adhesiolysis, two enterotomies occurred. These were fairly close to one another. This would be considered to be inherent to the risk of the procedure given the dense adhesions that were present. I elected to go ahead and put a pool sucker within one of these enterotomies and advance it proximally into the small bowel. Small bowel contents were then advanced towards the pool sucker placed within the lumen of the small bowel. Perhaps 1000 ml or more of small bowel contents were able to be evacuated from the dilated small bowel in this fashion. Attention was then directed towards closure of the enterotomies. Both enterotomies were closed transversely by placing multiple single interrupted sutures of 3-0 Vicryl. Each suture line was then oversewn by placing a second row of Lembert sutures with 3-0 Vicryl. One of the enterotomies was perhaps 50-60% of the circumference of the colon and was located more towards the antimesenteric portion. To check these repairs , I elected to go ahead and advanced the remaining small bowel contents back towards the enterotomies. I had my insurance assistant then place a hand upon the small bowel distal to these repairs to occlude the small bowel. Small bowel contents were advanced back until the enterotomy repair sites were fairly tense with small bowel contents. One repair was completely intact. One, however, could see a small amount of small bowel contents coming forth from the second repair that was more along the mesenteric portion and slightly larger. A few of the Lembert sutures were transected so that the initial repair could be visualized. One could then see a few small areas that were still "leaking" that were actually away from the actual enterotomy in an area where the small bowel was fairly thin. Given the tenuous nature of this repair, I elected to go ahead and proceed with a small bowel resection instead of attempting to place additional sutures. Mesentery to this segment of small bowel that was perhaps only on the order of about 10 cm in length was then sequentially divided between right angle clamps and ligated with 3-0 Vicryl ties. Next, the two antimesenteric portions of the small bowel were aligned to one another by placing a single interrupted suture of 3-0 Vicryl. This antimesenteric portion of the small bowel was proximal and distal to the two enterotomy sites. Enterotomies were then created adjacent to this suture and a GI 55 stapler was then placed within the enterotomies, aligned along the antimesenteric borders and fired. A reload was then placed within the YASMANI 55 stapler and placed transversely across the two segments of small bowel excluding the prior enterotomies and fired. This resulted in a completed functional digi-sj-ouno antiperistaltic anastomosis. Palpation revealed the anastomosis to be widely patent. The two prior enterotomy repairs at this time had been completely resected. This segment of small bowel was then passed off the table as a surgical specimen. The apexes of the transverse staple line were everted by placing a few single interrupted sutures of 3-0 Vicryl. A single interrupted suture was also placed in a serosal fashion along the antimesenteric staple line. Once again, I had my insurance assistant grasp the bowel distal to the anastomosis and advance remaining small bowel contents towards the anastomosis until the anastomosis was fairly taut with small bowel contents. There was no evidence for extravasation from the anastomosis. Next, an additional 15 minutes or more was spent performing adhesiolysis. The small bowel was then carefully inspected from the ligament of Treitz to the terminal ileum. There were a few small serosal tears present which were closed by placing a few single interrupted sutures of 3-0 Vicryl. There was no evidence for additional enterotomies. Again, this would be considered to be inherent to the risk of the procedure. Peritoneal cavity was then irrigated and all irrigant was suctioned until clear. Instrument, sponge and needle counts were performed and found to be correct. Attention was directed towards closure. Fascia was closed in a running fashion with #1 PDS suture. Skin and subcutaneous tissues were then irrigated with iodine solution. Skin was then closed with jaime. The patient is in the process of awakening from her anesthetic and will be sent back to recovery room once deemed in stable condition. Additionally, it should be noted that Nehemias Buck APRN, was present throughout the entire case and played a pivotal role in providing assistance and exposure during the course of the procedure. ICNDY
[2017-11-30] MEDS ORDERED: TPN - PHARMACY CONSULT MC ONE (10:47)
[2017-11-30] MEDS ORDERED: ERTAPENEM 1 G in NS 100 ML IV ONE (12:00)
[2017-11-30] MEDS: SORE THROAT SPRAY 20ml PO PRN (12:02)
[2017-11-30] MEDS ORDERED: D5-1/2NS with KCL 20mEq 1,000 ML IV SCH (13:30)
--- NOTE | 2017-11-30 13:41 | Pharmacy Consult-TPN/PPN ---
Pharmacy Consult-TPN/PPN - Laboratory Information Chemistry Turbidity < 20 (0-20) 11/30/17 04:14 Sodium 142 MEQ/L (134-144) 11/30/17 04:14 Potassium 3.9 MEQ/L (3.6-5) 11/30/17 04:14 Chloride 108 MEQ/L (98-107) H 11/30/17 04:14 Carbon Dioxide 29 MEQ/L (22-30) 11/30/17 04:14 Anion Gap 5 MEQ/L (5-15) 11/30/17 04:14 BUN 20.0 MG/DL (7-17) H 11/30/17 04:14 Creatinine 0.6 MG/DL (0.7-1.2) L 11/30/17 04:14 GFR Calculation 103 11/30/17 04:14 BUN/Creatinine Ratio 33 RATIO (6-26) H 11/30/17 04:14 Glucose 138 MG/DL (65-110) H 11/30/17 04:14 Calculated Osmolality 278 MOSM/KG (261-280) 11/30/17 04:14 Calcium 7.9 MG/DL (8.4-10.2) L D 11/30/17 04:14 Magnesium 1.8 MG/DL (1.6-2.3) 11/30/17 04:14 Total Bilirubin 0.40 MG/DL (0.20-1.30) 11/27/17 14:51 Icterus Index < 2 (0-7) 11/30/17 04:14 AST 23 U/L (14-36) 11/27/17 14:51 ALT 34 U/L (9-52) 11/27/17 14:51 Alkaline Phosphatase 135 U/L (38-126) H 11/27/17 14:51 Troponin I < 0.012 ng/ml (0-0.12) 11/27/17 14:51 Total Protein 8.7 G/DL (6.3-8.2) H 11/27/17 14:51 Albumin 4.4 G/DL (3.5-5.0) 11/27/17 14:51 Globulin 4.3 G/DL (2.4-3.6) H 11/27/17 14:51 Albumin/Globulin Ratio 1.0 RATIO (1.1-2.2) L 11/27/17 14:51 Lipase 46 U/L (23-300) 11/27/17 14:51 Specimen Hemolysis < 15 (0-25) 11/30/17 04:14 Intake and Output 11/29/17 11/30/17 12/01/17 06:59 06:59 06:59 Intake Total 1999 4959.583 / 4959.583 772.917 / 772.917 Output Total 2650 / 2650 1087 / 1087 Balance -650 / -650 3872.583 / 3872.583 772.917 / 772.917 Weight 62.2 kg 62.5 kg 63.9 kg Intake: IV 1999 4764.583 / 4764.583 722.917 / 722.917 D5-1/2NS with KCL 20mEq 1,000 1002.083 / 1002.083 622.917 / 622.917 ml @ 125 mls/hr IV .Q8H YULIET Rx# :[id number] Ertapenem 1 g In Ns 100 ml @ 100 / 100 100 / 100 200 mls/hr IV O ONE Rx#: [id number] Famotidine Pb 20 mg In 50 ml @ 100 / 100 100 mls/hr IV Q12H YULIET Rx#: [id number] Lr 1,000 ml @ 50 mls/hr IV . 1062.5 / 1062.5 Q20H YULIET Rx#:[id number] NS 500ml 500 ml @ 250 mls/hr IV 500 / 500 .Q2H YULIET Rx#:[id number] Ns 1,000 ml @ 100 mls/hr IV . 1999 2000.000 / 2000.000 Q10H YULIET Rx#:[id number] Oral 135 / 135 Intake, Gastric Tube Irrigant 60 / 60 50 / 50 Amount Left Nare 60 / 60 50 / 50 Output: Urine 650 / 650 245 / 245 Emesis 800 / 800 0 / 0 Urine Amount (Catheter) 337 / 337 Gastric Drainage 1200 / 1200 505 / 505 Left Nare 1200 / 1200 505 / 505 Other: Urine Appearance Clear Clear Urethral Cloudy Urine Color Light Katherine Yellow Urethral Dark Yellow Emesis Description Bile # Voids 1 # Unmeasured Emesis Episodes 1 - Consult Information TPN consult noted for Ms Mg by Kaitlynn Buck. Ms Mg has a small bowel obstruction and abdominal pain. She has central line access (port-a-cath). Will begin TPN at half goal rate of 40 ml/hr for 12 hours and then increase to 80 ml/hr. Will continue to monitor and adjust electrolytes accordingly. Thank you.
[2017-11-30] MEDS ORDERED: ALBUTEROL/IPRATROPIUM 2.5mg-0.5mg/3ml NEB AEROSOL PRN (13:47)
--- NOTE | 2017-11-30 13:53 | Progress Note ---
DATE 11/30/2017 FINDINGS Mrs. Mg this morning was sleeping upon entering the ICU room. After awakening the patient, she began to complain of abdominal pain. She states that her pain is not well controlled although, as stated above, she was sleeping when I entered the room. She questioned when she could "eat something. " VITALS: Afebrile/normotensive. Please refer to EMR. CHEST: Clear to auscultation bilaterally. HEART: Regular rate and rhythm. Normal S1 and S2 without gallops, murmurs or clicks. ABDOMEN: Soft. Moderate incisional tenderness present upon palpation. No evidence for guarding or rebound tenderness. LABORATORY/RADIOGRAPH EVALUATION The patient had a CBC earlier this morning. Her white count was stable at 6.3. Hemoglobin stable at 9.6. BMP was obtained and found to be essentially within normal limits. Chloride was slightly elevated at 108. BUN was elevated but improved at 20.0. ASSESSMENT 57-year-old female status post exploratory laparotomy, extensive adhesiolysis, small bowel resection secondary to a small bowel obstruction. Patient overall doing well. PLAN I informed the patient multiple studies have shown that, unfortunately, patients who are on chronic opioids prior to surgery tend to have more pain postoperatively. I informed the patient that we will do our best to try to control her pain. The patient has had a fentanyl patch on preoperatively. Will continue with her fentanyl patch. In addition, will continue with HAT BRUSHER MACHINE morphine. Given her history of nausea and vomiting for several days prior to her presentation, will go ahead and place a PICC line and begin hyperalimentation. In addition, the patient was found to have quite extensive adhesions and she very well may have a prolonged ileus. Will therefore initiate parenteral nutrition while we are awaiting return of her bowel activity. CINDY
--- NOTE | 2017-11-30 14:00 | Progress Note ---
- Date 11/30/17 Subjective: Martha reports that she feels awful today. She complains pain in her abdomen, back, legs, and shoulders. She is frustrated that her fentanyl patch has not been replaced and reports that IV medicine is not adequately controlling her cancer pain. She denies flatus and is frustrated by presence of the NG tube. She denied dyspnea, palpitations, or nausea. She denies lightheadedness or fever. Nursing reports they're waiting for that now patch to arrive from the pharmacy to replace patch placed on Thursday. Objective Vital signs: Temperature 98.5 F 11/30/17 13:22 Pulse Rate 86 11/30/17 13:22 Respiratory Rate 20 11/30/17 13:22 Blood Pressure 121/61 11/30/17 13:00 Pulse Oximetry 95 -2 L 11/30/17 13:22 I/O 4560/1087 EXAM General-uncomfortable appearing female, drowsy but responds to questions appropriately HEENT-conjunctiva clear, conjugate gaze Lungs-respirations nonlabored, decreased airflow throughout but breath sounds are clear Cardiac-regular rhythm, S1-S2 Abd-abdomen nondistended, soft, no bowel sounds appreciated Ext-without edema Neuro-MAEW Psych-anxious - Height/Weight/BMI: Height 1.75 m Weight 63.9 kg Body Mass Index 20.0 Results - Labs CBC & Chem 7: 11/30/17 04:14 11/30/17 04:14 Labs: Magnesium 1.8 Assessment and Plan (1) SBO (small bowel obstruction) Current visit: Yes Status: Acute Assessment and Plan: Assessment: Small bowel obstruction-s/p expiratory laparoscopy 11/29 with adhesiolysis Breast cancer with liver metastases-managed by Dr. Swartz Page Hx DVT and right jugular Foreign body (earring closed ) in colon-not removed surgically Anxiety/depression Lymphopenia Anemia-chronic with superimposed surgical blood loss anemia Chronic pain syndrome Plan: Fentanyl patch being replaced to improve pain control. Continue IV fluids pending initiation of TPN following placement of PICC line today. Laboratory data stable with minor blood loss anemia following yesterday's exploratory laparotomy. Adjust IV fluid rate as TPN initiated to avoid fluid overload. Xarelto on hold while nothing by mouth, continue Lovenox at present. Pepcid added for GI protection; increase activity. Preop KUBs reviewed by myself demonstrating Gastrografin in the stomach; high- risk medications in use-CURRICULUM SPECIALIST morphine. DVT Prophylaxis: Lovenox GI Prophylaxis: Pepcid Resuscitation Status: Full Code - Physician Narrative Narrative: Date: 11/30/17 Time: 1357 Hospital Course Summary Disclaimer: The visit summary below is not to be considered part of the above Progress Note. Hospital Course: Assessment Nausea, vomiting and abdominal pain secondary to small bowel obstruction vs ileus Foreign body in colon H/o DVT in R jugular following port-a-cath insertion in 2013 - On Xarelto Anxiety/depression Constipation Breast CA with liver mets Chronic pain OA 11/27/17 - Hospital admission Admit to OBS for further w-u to include CT scan of abd/pelvis, NG tube if needed , and pt to be kept NPO. Dr. Daley attending. Consult Dr. Ribeiro Given 1L NS in ER, will continue at 100cc/hr given her NPO status and vomiting Pain management w/ PRN dilaudid. Currently on fentanyl patch and oxycodone 15 q4-6hrs chronically. Zofran for nausea, IV PPI SCD's for VTE prophylaxis. Hold Xarelto/defer enoxaparin given NPO status and possible surgical intervention. Pt requests Full Code status Care to return to Dr. Nicole and Darleen Hooper, [place] on dismissal. 11/28/17 NG placed overnight, patient reports passing flatus but no bowel movement. Seen by Dr. Ribeiro-Gastrografin small bowel follow-through being obtained. 11/29/17 Persistent abdominal discomfort, Gastrografin administered yesterday remains in the patient's stomach today and findings consistent with complete small bowel obstruction. Exploratory laparotomy today with extensive adhesiolysis; admitted to the intensive care unit postoperatively. 11/30/17 Poor pain control postoperatively-no patch to be replaced today. Continue CURRICULUM SPECIALIST. PICC line being placed permit initiation of TPN. Stable to transfer out of ICU.
[2017-11-30] MEDS ORDERED: MULTI-VIT INFUSION 10 ML, MULTI-TRACE ELEMENTS 1 ML in TPN - STANDARD FORMULA 2,000 ML IV SCH (15:00)
--- NOTE | 2017-11-30 15:33 | Fluoroscopy Report ---
Indication:TPN Procedure:FL guided PICC insertion PICC LINE INSERTION: After discussing the details of the procedure, including risks, the patient wished to proceed. Informed consent was obtained. A preprocedural timeout was performed to confirm the correct patient and procedure. Sterile technique, local Xylocaine anesthesia, and sonographic guidance was used to access the left basilic vein. A .018 guidewire was advanced into the vein. Then using fluoroscopic guidance, a dual lumen 5 Fr PICC line was advanced with the tip placed within the SVC. Catheter length is 44 cm. A fluoroscopic image was then taken and archived. I was able to aspirate blood and inject freely through the ports. The procedure was completed without complication. Following this, the patient was taken back to her room in the critical care area in stable condition. Impression:Successful left-sided PICC line placement with tip residing near the cavoatrial junction. Fluoroscopy time: 1.3 minutes Colby Anderson RPA/MAR performed this under my personal supervision. .
[2017-11-30] MEDS: FAT EMULSION 20% 100 ML IV SCH (15:50)
[2017-12-01] MEDS: KETOROLAC 30 MG/ML INJECTION IVP PRN (01:32)
[2017-12-01] MEDS: MULTI-VIT INFUSION 10 ML, MULTI-TRACE ELEMENTS 1 ML in TPN - STANDARD FORMULA 2,000 ML IV SCH ×2 (03:00→15:49)
[2017-12-01] MEDS: D5-1/2NS with KCL 20mEq 1,000 ML IV SCH ×3 (03:00→05:00)
[2017-12-01] MEDS: FAMOTIDINE PB 20 MG/50 ML BAG IV SCH ×2 (05:00→18:02)
--- NOTE | 2017-12-01 08:01 | General Surgery Progress Note ---
Subjective Patient reports: feels better, pain is less (since Fentanyl patch replaced yesterday, she is now closer to her baseline level of discomfort associated with her chemo treatments.), voiding w/o difficulty, no flatus, no bowel movement Narrative: She expresses frustration with her bowels, stating se is running out of patients and is concerned about missing her oncology appointments and treatments with Dr. Nicole. TPN running through port. NG with 50 ml out yesterday. Nursing indicated that is has been flushed Q4 hrs but not on LIS "unless she is nauseated." - Vital Signs Last Vital Signs Temp 95.9 F L 12/01/17 07:31 Pulse 79 12/01/17 07:39 Resp 16 12/01/17 07:37 BP 152/71 H 12/01/17 07:31 Pulse Ox 90 12/01/17 07:31 - Laboratory Result Diagrams: 12/01/17 03:56 12/01/17 03:56 - Abnormal Exam Abdominal: hypoactive bowel sounds (rare gurgling BS) - Normal Exam General: awake, alert, no acute distress Cardiovascular: regular rate Respiratory: clear bilaterally, no labored breathing Abdominal: soft, appropriately tender (midline, no increased tenderness with lateral palpation and gentle pelvic rocking), incision(s) (midline dressing CDI) Psychiatric: normal affect (but frustrated) Assessment and Plan (1) Metastatic breast cancer Current Visit: Yes Status: Acute (2) SBO (small bowel obstruction) Current Visit: Yes Status: Acute Plan: Pain better since Fentanyl patch replaced, continue current pain options. PT ordered today, and order in for nursing to ambulate QID was placed 11/28, ambulation may encourage bowel activity. Will encourage bowels with Dulcolax today. Once there is flatus and/or stool can DC NG and ADAT slowly. Hospital Course Summary Disclaimer: The visit summary below is not to be considered part of the above Progress Note. Hospital Course: Assessment Nausea, vomiting and abdominal pain secondary to small bowel obstruction vs ileus Foreign body in colon H/o DVT in R jugular following port-a-cath insertion in 2013 - On Xarelto Anxiety/depression Constipation Breast CA with liver mets Chronic pain OA 11/27/17 - Hospital admission Admit to OBS for further w-u to include CT scan of abd/pelvis, NG tube if needed , and pt to be kept NPO. Dr. Daley attending. Consult Dr. Ribeiro Given 1L NS in ER, will continue at 100cc/hr given her NPO status and vomiting Pain management w/ PRN dilaudid. Currently on fentanyl patch and oxycodone 15 q4-6hrs chronically. Zofran for nausea, IV PPI SCD's for VTE prophylaxis. Hold Xarelto/defer enoxaparin given NPO status and possible surgical intervention. Pt requests Full Code status Care to return to Dr. Nicole and Darleen Hooper, [place] on dismissal. 11/28/17 NG placed overnight, patient reports passing flatus but no bowel movement. Seen by Dr. Ribeiro-Gastrografin small bowel follow-through being obtained. 11/29/17 Persistent abdominal discomfort, Gastrografin administered yesterday remains in the patient's stomach today and findings consistent with complete small bowel obstruction. Exploratory laparotomy today with extensive adhesiolysis; admitted to the intensive care unit postoperatively. 11/30/17 Poor pain control postoperatively-no patch to be replaced today. Continue SYSTEMS INTEGRATION ANALYST. PICC line being placed permit initiation of TPN. Stable to transfer out of ICU.
[2017-12-01] MEDS ORDERED: BISACODYL 10 MG SUPPOSITORY RECTALLY ONE (08:27)
[2017-12-01] MEDS: ENOXAPARIN 40 MG/0.4 ML INJECTION SQ SCH (09:05)
--- NOTE | 2017-12-01 14:51 | Pharmacy Consult-TPN/PPN ---
Pharmacy Consult-TPN/PPN - Laboratory Information Chemistry Turbidity < 20 (0-20) 12/01/17 03:56 Sodium 139 MEQ/L (134-144) 12/01/17 03:56 Potassium 3.5 MEQ/L (3.6-5) L 12/01/17 03:56 Chloride 104 MEQ/L (98-107) 12/01/17 03:56 Carbon Dioxide 31 MEQ/L (22-30) H 12/01/17 03:56 Anion Gap 4 MEQ/L (5-15) L 12/01/17 03:56 BUN 8.0 MG/DL (7-17) D 12/01/17 03:56 Creatinine 0.5 MG/DL (0.7-1.2) L 12/01/17 03:56 GFR Calculation 128 12/01/17 03:56 BUN/Creatinine Ratio 16 RATIO (6-26) 12/01/17 03:56 Glucose 143 MG/DL (65-110) H 12/01/17 03:56 Calculated Osmolality 268 MOSM/KG (261-280) 12/01/17 03:56 Calcium 8.1 MG/DL (8.4-10.2) L 12/01/17 03:56 Phosphorus 1.9 MG/DL (2.5-4.5) L 12/01/17 03:56 Magnesium 1.8 MG/DL (1.6-2.3) 12/01/17 03:56 Total Bilirubin 0.40 MG/DL (0.20-1.30) 11/27/17 14:51 Icterus Index < 2 (0-7) 12/01/17 03:56 AST 23 U/L (14-36) 11/27/17 14:51 ALT 34 U/L (9-52) 11/27/17 14:51 Alkaline Phosphatase 135 U/L (38-126) H 11/27/17 14:51 Troponin I < 0.012 ng/ml (0-0.12) 11/27/17 14:51 Total Protein 8.7 G/DL (6.3-8.2) H 11/27/17 14:51 Albumin 4.4 G/DL (3.5-5.0) 11/27/17 14:51 Globulin 4.3 G/DL (2.4-3.6) H 11/27/17 14:51 Albumin/Globulin Ratio 1.0 RATIO (1.1-2.2) L 11/27/17 14:51 Lipase 46 U/L (23-300) 11/27/17 14:51 Specimen Hemolysis < 15 (0-25) 12/01/17 03:56 Intake and Output 11/30/17 12/01/17 12/02/17 06:59 06:59 06:59 Intake Total 4959.583 / 4959.583 3105.250 / 3105.250 Output Total 1087 / 1087 1950 / 1950 550 / 550 Balance 3872.583 / 3872.583 1155.250 / 1155.250 -550 / -550 Weight 62.5 kg 63.9 kg 63.9 kg Intake: IV 4764.583 / 4764.583 2745.250 / 2745.250 D5-1/2NS with KCL 20mEq 1,000 1002.083 / 6742.137 9472.917 / 1996.917 ml @ 85 mls/hr IV .[id number] YULIET Rx#:[id number] Ertapenem 1 g In Ns 100 ml @ 100 / 100 100 / 100 200 mls/hr IV O ONE Rx#: [id number] Famotidine Pb 20 mg In 50 ml @ 100 / 100 100 / 100 100 mls/hr IV Q12H YULIET Rx#: [id number] Fat Emulsion 20% 100 ml @ 50 100 / 100 mls/hr IV 1600 YULIET Rx#: [id number] Lr 1,000 ml @ 50 mls/hr IV . 1062.5 / 1062.5 Q20H YULIET Rx#:[id number] Multi-Vit Infusion 10 ml Multi 447.333 / 447.333 -Trace Elements 1 ml In TPN - Standard Formula 2,000 ml @ 40 mls/hr IV .Q24H YULIET Rx#: [id number] NS 500ml 500 ml @ 250 mls/hr IV 500 / 500 .Q2H YULIET Rx#:[id number] Ns 1,000 ml @ 100 mls/hr IV . 2000.000 / 2000.000 Q10H YULIET Rx#:[id number] Oral 135 / 135 230 / 230 Intake, Gastric Tube Irrigant 60 / 60 130 / 130 Amount Left Nare 60 / 60 130 / 130 Output: Urine 245 / 245 1900 / 1900 Emesis 0 / 0 Urine Amount (Catheter) 337 / 337 550 / 550 Gastric Drainage 505 / 505 50 / 50 Left Nare 505 / 505 50 / 50 Other: Urine Appearance Clear Clear Clear Urethral Cloudy Urine Color Yellow Light Katherine Yellow Urethral Dark Yellow Urine Odor Normal Normal # Voids 1 - Consult Information TPN consult: day 2 TPN rate was increased to 85 ml/hr at ~0300 this morning, starting rate was 40 ml/hr. Morning Potassium level was slightly low at 3.5 meq/dL and Phosphate level is also low at 1.9 meq/dL. No adjustment were made to the TPN formula today. Will recheck labs tomorrow and make adjustment if no improvements to these values are seen after 24 hours at 85 ml/hr rate. Continue standard formula TPN at 85 ml/hr plus 20% Lipids 100 ml/day. thank you, Marian Brito, [facility], located [facility] current TPN formula: amino acid 8.5% 1000 ml Dextrose 50% 1000 ml Sodium 70 meq/bag Potassium 60 meq/bag Magnesium 10 meq/bag Calcium 9 meq/bag Acetate 140 meq/bag Chloride 78 meq/bag Phosphate 30 mmol/bag MVI 10 ml/bag trace elements 1 ml/bag
[2017-12-01] MEDS: FAT EMULSION 20% 100 ML IV SCH (15:49)
[2017-12-01] MEDS: SALINE FLUSH 10ml SYRINGE IV PRN (15:57)
--- NOTE | 2017-12-01 20:06 | Progress Note ---
DATE OF SERVICE 12/01/2017 FINDINGS Mrs. Mg was in good spirits this evening. She states she has passed some flatus as well as a small bowel movement earlier today. She states that she has ambulated several times. She states that her abdominal pain is markedly improving. EXAM VITAL SIGNS: Afebrile, normotensive. ABDOMEN: Soft. Minimal excisional tenderness. LABORATORY/RADIOGRAPHIC EVALUATION The patient had a CBC today that was unremarkable. Hemoglobin has drifted down slightly to 8.7. White count is stable at 6.0. BMP was obtained and reviewed. ASSESSMENT 57-year-old female with known metastatic breast cancer, status post exploratory laparotomy with extensive adhesiolysis, small bowel resection. Patient doing well. PLAN Will clamp NG this evening. Will begin on clear liquids. If the patient tolerates this "trial" will DC NG tomorrow and slowly advance diet as tolerated. I am pleased with patient's progress this evening. MTDD
[2017-12-01] MEDS ORDERED: FALL RISK - PHARMACY CONSULT MC ONE (20:13)
--- NOTE | 2017-12-01 20:13 | Progress Note ---
- Date 12/01/17 Subjective: Mrs. Mg was much more comfortable this morning. She reported generalized pain has improved following replacement of fentanyl patch yesterday. She's had no flatus or bowel movement but denies nausea or vomiting. NG remains in place. She has had no dyspnea and denies fevers or chills. She ambulated earlier and was not lightheaded. Objective Vital signs: Temperature 98.9 F 12/01/17 20:00 Pulse Rate 86 12/01/17 20:00 Respiratory Rate 18 12/01/17 20:00 Blood Pressure 139/77 12/01/17 20:00 Pulse Oximetry 90 12/01/17 20:00 I/O 3105/ weight up approximately 2-1/2 kg from admission NAD, drowsy but responds to questions appropriately Conjunctiva clear Respirations nonlabored, decreased airflow but breath sounds clear anteriorly Regular rhythm, S1-S2 Soft, abdomen is flat, minimal tenderness and very sparse bowel sounds present Without edema Height/Weight/BMI: Height 1.75 m Weight 63.9 kg Body Mass Index 20.0 Results - Labs CBC & Chem 7: 12/01/17 03:56 12/01/17 03:56 Labs: Phosphorus 1.9, magnesium 1.8 Assessment and Plan (1) SBO (small bowel obstruction) Current visit: Yes Status: Acute Assessment and Plan: Assessment: Small bowel obstruction-s/p expiratory laparoscopy 11/29 with adhesiolysis Breast cancer with liver metastases-managed by Dr. Maxime Ricks Hx DVT and right jugular Foreign body (earring closed ) in colon-not removed surgically Anxiety/depression Lymphopenia Anemia-chronic with superimposed surgical blood loss anemia Chronic pain syndrome Plan: Generally doing well, await return of bowel function. Continue TPN. Fluid balance positive-may be able to discontinue supplemental IV fluids tomorrow. Reassess phosphorus tomorrow-pharmacy plans to adjust TPN if remains low. Anticipate need to add potassium to TPN as well. ZEE Upton; continue ambulation. Xarelto remains on hold at present. DVT Prophylaxis: SCD's, Lovenox GI Prophylaxis: Pepcid Resuscitation Status: Full Code - Physician Narrative Narrative: Date: 12/01/17 Time: 2008 Hospital Course Summary Disclaimer: The visit summary below is not to be considered part of the above Progress Note. Hospital Course: Assessment Nausea, vomiting and abdominal pain secondary to small bowel obstruction vs ileus Foreign body in colon H/o DVT in R jugular following port-a-cath insertion in 2013 - On Xarelto Anxiety/depression Constipation Breast CA with liver mets Chronic pain OA 11/27/17 - Hospital admission Admit to OBS for further w-u to include CT scan of abd/pelvis, NG tube if needed , and pt to be kept NPO. Dr. Daley attending. Consult Dr. Ribeiro Given 1L NS in ER, will continue at 100cc/hr given her NPO status and vomiting Pain management w/ PRN dilaudid. Currently on fentanyl patch and oxycodone 15 q4-6hrs chronically. Zofran for nausea, IV PPI SCD's for VTE prophylaxis. Hold Xarelto/defer enoxaparin given NPO status and possible surgical intervention. Pt requests Full Code status Care to return to Dr. Nicole and Darleen Hooper APRN on dismissal. 11/28/17 NG placed overnight, patient reports passing flatus but no bowel movement. Seen by Dr. Ribeiro-Gastrografin small bowel follow-through being obtained. 11/29/17 Persistent abdominal discomfort, Gastrografin administered yesterday remains in the patient's stomach today and findings consistent with complete small bowel obstruction. Exploratory laparotomy today with extensive adhesiolysis; admitted to the intensive care unit postoperatively. 11/30/17 Poor pain control postoperatively-no patch to be replaced today. 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 PICC line being placed permit initiation of TPN. Stable to transfer out of ICU.
[2017-12-02] MEDS: D5-1/2NS with KCL 20mEq 1,000 ML IV SCH (04:48)
[2017-12-02] MEDS: MORPHINE PCA 30 MG/30 ML SYRINGE IV PRN (04:48)
[2017-12-02] MEDS: FAMOTIDINE PB 20 MG/50 ML BAG IV SCH ×3 (05:29→18:25)
--- NOTE | 2017-12-02 07:46 | General Surgery Progress Note ---
Subjective Patient reports: feels better, pain is less (she would like the Oxycodone 15-30 mg that she takes at home prn), tolerating liquids well (and would like scambled eggs), flatus, bowel movement (loose) Narrative: No nausea, is ambulating. - Vital Signs Last Vital Signs Temp 97.7 F 12/02/17 03:43 Pulse 83 12/02/17 03:43 Resp 20 12/02/17 04:00 BP 137/67 12/02/17 03:43 Pulse Ox 93 12/02/17 03:43 - Laboratory Result Diagrams: 12/02/17 04:11 12/02/17 04:11 - Normal Exam General: alert, oriented, resting, awakens easily, no acute distress Cardiovascular: regular rate Respiratory: no labored breathing Abdominal: BS normo active x4, soft, appropriately tender (midline), non-tender (with lateral palpation), incision(s) (Dressing removed, jaime in tact, no erythema or ecchymosis, dry gauze applied loosely) Psychiatric: normal affect Neurological: CN 2-12 grossly intact Assessment and Plan (1) Metastatic breast cancer Current Visit: Yes Status: Acute (2) SBO (small bowel obstruction) Current Visit: Yes Status: Acute Plan: NG DC'd regular breakfast ordered. Will increase rate of TPN to 100 ml/ then DC when current bag is empty or expires. DC other fluids and ACCESSORIES REPAIRER. Home dose of Oxycodone 15-30 mg ordered. Anticipate able to be discharged tomorrow if tolerates regular diet, from surgical standpoint. Will see her for routine post op December 15 in Quintin's office. Surgical discharge instructions and F/U appointment entered in discharge orders. Hospital Course Summary Disclaimer: The visit summary below is not to be considered part of the above Progress Note. Hospital Course: Assessment Nausea, vomiting and abdominal pain secondary to small bowel obstruction vs ileus Foreign body in colon H/o DVT in R jugular following port-a-cath insertion in 2013 - On Xarelto Anxiety/depression Constipation Breast CA with liver mets Chronic pain OA 11/27/17 - Hospital admission Admit to OBS for further w-u to include CT scan of abd/pelvis, NG tube if needed , and pt to be kept NPO. Dr. Daley attending. Consult Dr. Ribeiro Given 1L NS in ER, will continue at 100cc/hr given her NPO status and vomiting Pain management w/ PRN dilaudid. Currently on fentanyl patch and oxycodone 15 q4-6hrs chronically. Zofran for nausea, IV PPI SCD's for VTE prophylaxis. Hold Xarelto/defer enoxaparin given NPO status and possible surgical intervention. Pt requests Full Code status Care to return to Dr. Nicole and Darleen Hooper, [place] on dismissal. 11/28/17 NG placed overnight, patient reports passing flatus but no bowel movement. Seen by Dr. Ribeiro-Gastrografin small bowel follow-through being obtained. 11/29/17 Persistent abdominal discomfort, Gastrografin administered yesterday remains in the patient's stomach today and findings consistent with complete small bowel obstruction. Exploratory laparotomy today with extensive adhesiolysis; admitted to the intensive care unit postoperatively. 11/30/17 Poor pain control postoperatively-no patch to be replaced today. Continue ACCESSORIES REPAIRER. PICC line being placed permit initiation of TPN. Stable to transfer out of ICU.
[2017-12-02] MEDS: ENOXAPARIN 40 MG/0.4 ML INJECTION SQ SCH (08:18)
[2017-12-02] MEDS: Oxycodone *IR* 15 MG TABLET PO PRN ×3 (09:45→18:26)
--- NOTE | 2017-12-02 16:31 | Progress Note ---
- Date 12/02/17 Subjective: Patient is seen lying in her bed. She complains of pain 06/01. States she has eaten some, but has no appetite. She's had a few loose stools. Overall, feel she is improving. No chest pain or shortness of breath. No urinary symptoms. Would like to go home today. credit administration manager has ordered her walker to arrive later today. Objective Vital signs: Temperature 98.8 F 12/02/17 07:53 Pulse Rate 79 12/02/17 08:03 Respiratory Rate 16 12/02/17 07:53 Blood Pressure 151/74 H 12/02/17 07:53 Pulse Oximetry 87 L 12/02/17 07:53 Height/Weight/BMI: Height 1.75 m Weight 63.4 kg Body Mass Index 20.0 - Constitutional Present: no acute distress, thin - Routine Respiratory Exam Present: CTA bilaterally. Absent: wheezes - Routine Cardiovascular Exam Present: RRR. Absent: murmur - Routine Abdominal Exam Present: soft, normoactive bowel sounds, tenderness (minimally, near incision), non distended - Routine Extremities Exam Present: no edema, normal capillary refill - Routine Skin Exam Present: dry, warm - Routine Neurological Exam Present: alert, oriented X3 - Routine Lymphatic Exam Lymphatic: Absent: adenopathy - Routine Psychiatric Exam Present: normal affect, cooperative Results - Labs CBC & Chem 7: 12/02/17 04:11 12/02/17 04:11 Assessment and Plan (1) SBO (small bowel obstruction) Current visit: Yes Status: Acute Assessment and Plan: Assessment: Small bowel obstruction-s/p expiratory laparoscopy 11/29 with adhesiolysis Breast cancer with liver metastases-managed by Dr. Swartz Page Hx DVT and right jugular Foreign body (earring closed ) in colon-not removed surgically Anxiety/depression Lymphopenia Anemia-chronic with superimposed surgical blood loss anemia Chronic pain syndrome Plan: TPN and IVF's have been discontinued by surgical team. She is taking p.o and has had several loose BM's. Check phosphorus. On oxycodone 15-30 mg by mouth and fentanyl patch for pain. Per surgery - ok to resume Xarelto. 12/02/2017-I did see and examine the patient today. Please see my note under discharge summary. - Physician Narrative Narrative: Date: 12/02/17 Time: 1607 Hospital Course Summary Disclaimer: The visit summary below is not to be considered part of the above Progress Note. Hospital Course: Assessment Nausea, vomiting and abdominal pain secondary to small bowel obstruction vs ileus Foreign body in colon H/o DVT in R jugular following port-a-cath insertion in 2013 - On Xarelto Anxiety/depression Constipation Breast CA with liver mets Chronic pain OA 11/27/17 - Hospital admission Admit to OBS for further w-u to include CT scan of abd/pelvis, NG tube if needed , and pt to be kept NPO. Dr. Daley attending. Consult Dr. Ribeiro Given 1L NS in ER, will continue at 100cc/hr given her NPO status and vomiting Pain management w/ PRN dilaudid. Currently on fentanyl patch and oxycodone 15 q4-6hrs chronically. Zofran for nausea, IV PPI SCD's for VTE prophylaxis. Hold Xarelto/defer enoxaparin given NPO status and possible surgical intervention. Pt requests Full Code status Care to return to Dr. Nicole and Darleen Hooper, [place] on dismissal. 11/28/17 NG placed overnight, patient reports passing flatus but no bowel movement. Seen by Dr. Ribeiro-Gastrografin small bowel follow-through being obtained. 11/29/17 Persistent abdominal discomfort, Gastrografin administered yesterday remains in the patient's stomach today and findings consistent with complete small bowel obstruction. Exploratory laparotomy today with extensive adhesiolysis; admitted to the intensive care unit postoperatively. 11/30/17 Poor pain control postoperatively-no patch to be replaced today. 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 PICC line being placed permit initiation of TPN. Stable to transfer out of ICU.TPN and IVF's have been discontinued by surgical team. She is taking p.o and has had several loose BM's. 12/02/17 Check phosphorus. On oxycodone 15-30 mg by mouth and fentanyl patch for pain. Per surgery - ok to resume Xarelto.
[2017-12-02] MEDS ORDERED: POTASSIUM ACID PHOSPHATE 500 MG TABLET PO SCH (17:40)
[2017-12-02 17:55] VITALS: BP 140/67; PULSE 98; RESP 18; TEMP 98.5; O2SAT 92
--- NOTE | 2017-12-02 18:39 | Discharge Summary ---
Discharge Information Date of admission: 11/27/17 16:53 Anticipated date of discharge: 12/02/17 Attending Physician: Katerine Randall MD Primary care physician: Maxime Ricks MD Consults: Dr. Ribeiro-General Surgeon - Discharge Diagnosis (1) SBO (small bowel obstruction) Status: Acute Small bowel obstruction-s/p expiratory laparoscopy 11/29 with adhesiolysis Breast cancer with liver metastases-managed by Dr. Maxime Ricks Hx DVT and right jugular Foreign body (earring closed ) in colon-not removed surgically Anxiety/depression Lymphopenia Anemia-chronic with superimposed surgical blood loss anemia Chronic pain syndrome Borderline hypokalemia Mild hypophosphatemia - Procedures Procedures: Exploratory laparotomy, extensive adhesiolysis, small bowel resection-performed on 11/29/[address] Kurt Ribeiro for small bowel obstruction - Laboratory Labs: 12/02/17 04:11 12/02/17 04:11 Laboratory Tests 12/01/17 12/02/17 03:56 04:10 Phosphorus 1.9 L 4.0 - Microbiology Blood cultures negative after 5 days - Radiology Radiology: Date of Exam: 11/27/17 Ordering Provider: Atilio Greene DO Type of Exam(s): XR acute abdomen series Reason for Exam(s): N/V/D Indication: N/V/D PROCEDURE: PA view of the chest with supine and upright AP views of the abdomen Encounter: Initial Comparison: KUB dated January 25, 2016 FINDINGS: The lungs are clear. There is no abnormal airspace opacity, pleural effusion or pneumothorax identified. The heart size, pulmonary vasculature and mediastinum are stable. Left subclavian port catheter. Right axillary surgical clips. Cervical spine fusion hardware. There is no free air on the upright view. There are dilated small bowel loops with differential air-fluid levels seen. Small bowel dilatation up to 5.5 cm in diameter. Minimal colonic gas present. There is a metallic foreign body measuring 1.7 cm in length projecting over the right lower quadrant that may be within the distal small bowel or cecum based on the lateral view. IMPRESSION: 1. No acute cardiopulmonary abnormality. 2. Evidence of a high-grade small bowel obstruction that may or may not be related to an ingested foreign body in the right lower quadrant which appears to be an earring. . Date of Exam: 11/27/17 Ordering Provider: Kurt Ribeiro MD Type of Exam(s): CT abdomen pelvis w con Reason for Exam(s): small bowel obstruction, hx for metastatic breast cancer Indication: small bowel obstruction, hx for metastatic breast cancer PROCEDURE: CT abdomen pelvis w con: Encounter: Initial Comparison: Abdominal x-ray from the same date and CT abdomen/pelvis dated January 17, 2016 Technique: Axial CT images were performed through the abdomen and pelvis after the administration of intravenous contrast. Coronal and sagittal two-dimensional reformats. Automated Exposure Control and Iterative Reconstruction dose reducing techniques were utilized. Contrast: Omnipaque 300 75 mL Findings: Groundglass opacity in the right lower lobe. The liver is grossly normal. Gallbladder is distended. The spleen, pancreas and adrenal glands are within normal limits. Right kidney is normal. Small fat-containing lesion in the lower pole of the left kidney measuring 1.7 cm in size possibly an angiomyolipoma. No abdominal or pelvic lymphadenopathy. Stomach is fluid-filled and distended as is the majority of the small bowel measuring up to 4 cm in the midabdomen. No significant free fluid. No free air. The colon is relatively decompressed. The metallic foreign body seen radiographically is within the ascending colon. There are decompressed loops of distal small bowel seen in the right pelvis. There is a transition point with fecalized small bowel in the left lower abdomen best seen on axial image #48 at the level of the aortic bifurcation. No mesenteric or portal venous gas appreciated. Bone windows show degenerative change and scoliosis in the spine. Impression: 1. Acute complete small bowel obstruction with transition in the left lower abdomen possibly due to an adhesion. 2. Metallic foreign body in the ascending colon. 3. Left renal angiomyolipoma There is a preliminary report by [employer]. . Date of Exam: 11/28/17 Ordering Provider: Kurt Ribeiro MD Type of Exam(s): XR small bowel follow through Reason for Exam(s): possible complete small celestino obstruction Indication: possible complete small bowel obstruction PROCEDURE: XR small bowel follow through: Encounter: Initial Comparison: CT abdomen dated November 27, 2017 Findings: January double contrast was administered orally followed by serial abdominal radiographs. There is a nasogastric tube in place within the distal esophagus. The tip is just above the GE junction. Consider advancement. There is quite slow motility of contrast into the small bowel taking approximately four hours to exit the stomach. At the six hour roberth there is contrast within dilated loops of proximal to mid small bowel. These measure up to 5.6 cm in diameter. At eight hours after administration contrast is still confined to the dilated small bowel with no evidence of colonic contrast. Over the course of the exam the radiopaque foreign body in the right abdomen does not move significantly. Impression: No colonic contrast by 8 h after administration suggesting a complete small bowel obstruction. There is a preliminary report by [employer]. . Abdominal series 11/28/2017 Impression: 1. Nasogastric tube tip above the GE junction. Recommend advancement. 2. Continued findings of a small bowel obstruction. 2 view abdomen 11/29/2017 Impression: Still no definitive evidence of contrast material within the colon consistent with a complete small bowel obstruction. Date of Exam: 11/30/17 Ordering Provider: Angélica Buck APRN Type of Exam(s): FL guided PICC insertion Reason for Exam(s): TPN Indication:TPN Procedure:FL guided PICC insertion PICC LINE INSERTION: After discussing the details of the procedure, including risks, the patient wished to proceed. Informed consent was obtained. A preprocedural timeout was performed to confirm the correct patient and procedure. Sterile technique, local Xylocaine anesthesia, and sonographic guidance was used to access the left basilic vein. A .018 guidewire was advanced into the vein. Then using fluoroscopic guidance, a dual lumen 5 Fr PICC line was advanced with the tip placed within the SVC. Catheter length is 44 cm. A fluoroscopic image was then taken and archived. I was able to aspirate blood and inject freely through the ports. The procedure was completed without complication. Following this, the patient was taken back to her room in the critical care area in stable condition. Impression:Successful left-sided PICC line placement with tip residing near the cavoatrial junction. Fluoroscopy time: 1.3 minutes History of Present Illness HPI: Patient is a 57 yo female with 4 day h/o nausea, vomiting and abdominal pain. Last BM was 11/22/17. She has a h/o SBO with surgery by Dr. Ribeiro 2 years ago. She has breast CA with mets to the liver and lymph nodes. Sees Dr Nicole in [place] for chemo. She takes oxycodone 15mg q 4-6 hrs and is on a fentanyl patch. She states she uses these pain meds for pain which she has "all over" due to arthritis and from previous surgery in her neck. She also uses Soma for muscle spasms in her legs. Work up in ER includes xray showing high grade small bowel obstruction which may or may not be related to an ingested foreign body in the RLQ which appears to be an earring. No significant findings on labs. UA not yet collected and CT scan is in process. Dr. Ribeiro has been consulted. Objective Vital signs: Temperature 98.5 F 12/02/17 17:54 Pulse Rate 98 12/02/17 17:54 Respiratory Rate 18 12/02/17 17:54 Blood Pressure 140/67 H 12/02/17 17:54 Pulse Oximetry 92 12/02/17 17:54 Height/Weight/BMI: Height 1.75 m Weight 63.4 kg Body Mass Index 20.0 Hospital Course This is a general summary of the patient's hospital course. For more details refer to the complete medical record. Hospital course: Assessment Nausea, vomiting and abdominal pain secondary to small bowel obstruction vs ileus Foreign body in colon H/o DVT in R jugular following port-a-cath insertion in 2013 - On Xarelto Anxiety/depression Constipation Breast CA with liver mets Chronic pain OA 11/27/17 - Hospital admission Admit to OBS for further w-u to include CT scan of abd/pelvis, NG tube if needed , and pt to be kept NPO. Dr. Daley attending. Consult Dr. Ribeiro Given 1L NS in ER, will continue at 100cc/hr given her NPO status and vomiting Pain management w/ PRN dilaudid. Currently on fentanyl patch and oxycodone 15 q4-6hrs chronically. Zofran for nausea, IV PPI SCD's for VTE prophylaxis. Hold Xarelto/defer enoxaparin given NPO status and possible surgical intervention. Pt requests Full Code status Care to return to Dr. Nicole and Darleen Hooper, [place] on dismissal. 11/28/17 NG placed overnight, patient reports passing flatus but no bowel movement. Seen by Dr. Ribeiro-Gastrografin small bowel follow-through being obtained. 11/29/17 Persistent abdominal discomfort, Gastrografin administered yesterday remains in the patient's stomach today and findings consistent with complete small bowel obstruction. Exploratory laparotomy today with extensive adhesiolysis; admitted to the intensive care unit postoperatively. 11/30/17 Poor pain control postoperatively-no patch to be replaced today. 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 PICC line being placed permit initiation of TPN. Stable to transfer out of ICU.TPN and IVF's have been discontinued by surgical team. She is taking p.o and has had several loose BM's. 12/02/17 Check phosphorus. On oxycodone 15-30 mg by mouth and fentanyl patch for pain. Per surgery - ok to resume Xarelto. 12/02/2017-Dr. Randall Patient was seen earlier this evening. She was strongly desiring to go home and was very anxious and upset that she might not be able to leave. Systolic blood pressure was in the 190s and she was tearful. NAZARIO Del Cid for Dr. Ribeiro did see the patient later this evening. She felt the patient was stable from a surgical standpoint for dismissal. The patient was much calmer when I reevaluated her after Nehemias's visit. At this time the patient had normal vital signs. The patient stated that she felt her pain would be well controlled with her usual home medications of fentanyl patch and oxycodone for breakthrough pain. She had no nausea and stated she was eating and drinking well. She was agreeable to taking boost supplements. Phosphorus level was borderline low yesterday, but normalized today. On exam, she was initially very upset and agitated but on second visit was very calm. She was alert and oriented 3. Chest is clear to auscultation. Cardiovascular reveals a regular rate and rhythm. Abdomen is soft with positive bowel sounds. No significant tenderness. Extremities are free of clubbing cyanosis or edema. Skin is warm and dry and without rashes. Was felt that the patient was stable for dismissal to home with plans for close follow-up. She states she is following up with Dr. Maxime Ricks next week. He may need to delay chemotherapy while she heals. The patient will take her usual home fentanyl and oxycodone for pain. She will resume all of her usual home medications. Part of her anxiety today be related to being off of her Prozac. Dr. Ribeiro is in agreement with restarting Xarelto today. Patient will restart that this evening when she gets home. The patient was given extensive instructions on signs or symptoms for which she should either return to the emergency room or call her physician. She does have a ride home. She is out of oxycodone, and I've given her a prescription for #30. She will get further refills through Dr. ricks. She has been instructed not to drive if she is taking narcotics. Time spent with patient: discharge greater than 30 minutes DVT Prophylaxis: Lovenox GI Prophylaxis: Pepcid Discharge Plan - Discharge Disposition Discharge Date: 12/02/17 Disposition: 01 Discharged Home, Self-Care *Condition: Stable Reason For Visit (Visit label in EMR): SBO,abdominal pain - Discharge Medications *Discharge Medications: Continue Carisoprodol [Soma] 350 mg PO Q8H PRN #0 PRN Reason: PRN ORDERS Peg 3350 238 G Bottle [Miralax] 1 dose PO DAILY PRN PRN Reason: Constipation FLUoxetine [Prozac] 60 mg PO DAILY FentaNYL PATCH [Duragesic Patch] 1 patch TD Q72H ALPRAZolam [Xanax] 1 mg PO TID PRN PRN Reason: Anxiety Cyanocobalamin (B-12) [Vit. B-12] 500 mcg PO DAILY Docusate Sodium [Colace] 100 mg PO BID Multivitamin [One Daily] 1 each PO DAILY Calcium Carbonate/Vitamin D3 [Calcium 500-Vit D3 200 Tablet] 1 each PO DAILY Oxycodone HCl [Roxicodone] 15 - 30 mg PO Q4H PRN #30 tab PRN Reason: Pain Inulin/Chromium Picolinate [Fiber Gummies] 1 tab PO BID #0 Rivaroxaban [Xarelto] 20 mg PO DAILY Potassium Chloride 20 meq PO DAILY - Discharge Packet/Instructions *Diet: Regular *Activity: Do not drive, operate machinery for 24 hours after surgery or while taking pain medication. No lifting more than 25 pounds for 4 weeks. *Pain Management/Treatment: Follow prescriptions as prescribed *Wound Care: May leave incision open to air or cover loosely with gauze. May shower. *Expected Signs/Symptoms: Abdominal tenderness will gradually improve. Fatigue is common for several weeks after major surgery *Notify Physician if: 1. Call your surgeon if you are having problems relating to your surgery at [phone]. 2. Problems such as: Temp above 101.5 degrees. You develop redness, excessive swelling of the incision, increasing pain or excessive foul smelling drainage. 3. If the office is closed, call [facility] at [phone] and have your Surgeon paged. 4. Call your primary care physician or go to the ER if you're having problems with shortness of breath, chest pain, severe diarrhea, or any other significant concerns *During Business Hours Contact: Call your surgeon at at [phone]. *After Business Hours Contact: If the office is closed, call [facility] at [phone] and have your Surgeon paged. *Pending Lab/Results: Will be notified - Referrals/Follow Up *Referrals/Follow Up: Angélica Buck APRN [Advanced Practice Nurse] - 12/15/17 10:00 am Darleen Hooper APRN [Advanced Practice Nurse] - 1 Week Millicent,Maxime Calderón MD [Family Provider] - - Patient Handouts Patient Handouts: Bowel Obstruction (DC) Physician Narrative - Narrative Attestation Narrative: Date: 12/02/17 Time: [id number]
== END 2017-12-02 19:05 | disposition home or self-care (01) | DRG 330 ==
LOC: ED 13:51 → SUATTDRO 16:53 → SRG 16:53 → CCU 11-29 14:50 → SRG 11-30 14:10
PROVIDERS: ADMIT Internal Medicine; ATTEND Internal Medicine